=== PATIENT | female | born 1985 | race African-American/Black ===

== ENCOUNTER 2016-10-09 03:13 | Emergency (ER) | payer OTHER ==
[2016-10-09] MEDS ORDERED: IBUPROFEN 600 MG TABLET (FP) PO ONE (03:39)
[2016-10-09] MEDS ORDERED: DIPHTH,PERTUSS(ACELL),TET 0.5 ML DISP.SYRIN IM ONE (03:39)
[2016-10-09] MEDS ORDERED: AMOX TR/POT CLAV 875MG/125MG TABLETS (FP) PO ONE (03:40)
[2016-10-09 04:02] VITALS: BP 142/90; PULSE 89; TEMP 98.7; BMI 36.6
[2016-10-09] MEDS ORDERED: AMOX TR/POT CLAV 875MG/125MG TABLETS (FP) ONE (04:14)
[2016-10-09] MEDS ORDERED: IBUPROFEN 400 MG TABLET (FP) PO ONE (04:15)
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
== END 2016-10-09 04:37 | disposition home or self-care (01) ==
LOC: JER 03:13
PROC: 3E0234Z Introduction of Serum, Toxoid and Vaccine into Muscle, Percutaneous Approach (ICD-10-PCS; principal; 2016-10-09)
DX: S60.476A Other superficial bite of right little finger, initial encounter (principal); Y04.1XXA Assault by human bite, initial encounter; Y93.89 Activity, other specified; Y92.89 Other specified places as the place of occurrence of the external cause; Y07.03 Male partner, perpetrator of maltreatment and neglect
CPT/HCPCS: 73130-TC-RT; 84703; 90471; 90715; 99281-25

== ENCOUNTER 2017-05-10 12:39 | Emergency (ER) | payer SELFPAY ==
[2017-05-10 12:47] VITALS: BP 110/60; PULSE 71; TEMP 97.8; BMI 37.0
[2017-05-10] MEDS ORDERED: KETOROLAC TROMETHAMINE 60 MG/2 ML VIAL IM ONE (13:23)
--- NOTE | 2017-05-10 13:37 | PDOC ---
History of Present Illness - General Chief Complaint: Migraine Headache Stated Complaint: HEADACHES Time Seen by Provider: 05/10/17 12:59 History Source: Patient Exam Limitations: No Limitations - History of Present Illness Initial Comments: 05/10/17 13:26 Patient is a 31-year-old female, history of migraine headaches presents today with headache. Patient reports taking her Fioricet, Motrin, Advil without relief this happens frequently, after 3 days of headache patient goes to the emergency Department for an injection which resolved her pain. Patient reports headache as dull, generalized, no photophobia. Denies any nausea vomiting, no neurosensory deficits. Denies any change in headache from previous episodes. Past Medical History: [Denies]. Allergies: No known allergies Medications: [Fioricet when necessary] Family History: Non-contributory Social History: Denies smoking, alcohol use, or IVDU Review of Systems GENERAL/CONSTITUTIONAL: [No fever or chills. No weakness. No weight change.] HEAD, EYES, EARS, NOSE AND THROAT: [No change in vision. No ear pain or discharge. No sore throat. ] CARDIOVASCULAR: [No chest pain or shortness of breath.] RESPIRATORY: [No cough, wheezing, or hemoptysis.] GASTROINTESTINAL: [No nausea, vomiting, diarrhea or constipation. No rectal bleeding.] GENITOURINARY: [No dysuria, frequency, or change in urination.] MUSCULOSKELETAL: [No joint or muscle swelling or pain. No neck or back pain.] SKIN AND BREASTS: [No rash or easy bruising.] NEUROLOGIC: [Generalized headache PSYCHIATRIC: [No depression or anxiety.] ENDOCRINE: [No increased thirst. No abnormal weight change.] HEMATOLOGIC/LYMPHATIC: [No anemia, easy bleeding, or history of blood clots.] ALLERGIC/IMMUNOLOGIC: [No hives or skin allergy. No latex allergy.] Physical Exam: GENERAL: [The patient is awake, alert, and fully oriented, in no acute distress. ] EYES: [Pupils equal, round and reactive to light, extraocular movements intact, sclera anicteric, conjunctiva clear.] ENT: [Ears normal, nares patent, oropharynx clear without exudates. Moist mucous membranes. No uvula deviation] NECK: [Normal range of motion, supple without lymphadenopathy, JVD, or masses.] LUNGS: [Breath sounds equal, clear to auscultation bilaterally. No wheezes, and no crackles.] HEART: [Regular rate and rhythm, normal S1 and S2 without murmur, rub or gallop. ] ABDOMEN: [Soft, nontender, normoactive bowel sounds. No guarding, no rebound. No masses. No bruising or abrasions] MUSCULOSKELETAL: [Normal range of motion, no edema. No clubbing or cyanosis. No cords, erythema, or tenderness. No CVA Tenderness with fist.] NEUROLOGICAL: [Cranial nerves II through XII grossly intact. Normal speech, normal gait.] SKIN: [Warm, Dry, normal turgor, no rashes or lesions noted.] Past History - Past Medical History Allergies/Adverse Reactions: Allergies Allergy/AdvReac Type Severity Reaction Status Date / Time No Known Allergies Allergy Verified 05/10/17 12:44 Home Medications: Ambulatory Orders Butalb/Acetaminophen/Caffeine [Fioricet 50-300-40 mg Capsule] 1 each PO BID PRN 05/10/17 COPD: No Psychiatric Problems: Yes (anxiety) Other medical history: migraines - Surgical History Abdominal Surgery: Yes (TUBAL SX) Appendectomy: No Cardiac Surgery: No Cholecystectomy: No Gastric Stapling: No GI Surgery: No Lung Surgery: No Neurologic Surgery: No - Reproductive History (#): 4 Para: 1 Polycystic Ovaries: Yes Therapeutic (s) & number: Yes (2) Spontaneous : 1 - Immunization History Immunization Up to Date: Yes - Suicide/Smoking/Psychosocial Hx Smoking Status: Yes Smoking History: Never smoked Have you smoked in the past 12 months: No Number of Cigarettes Smoked Daily: 0 Information on smoking cessation initiated: No Hx Alcohol Use: No Drug/Substance Use Hx: No Substance Use Type: None *Physical Exam - Vital Signs Last Vital Signs Temp Pulse Resp BP Pulse Ox 97.8 F 71 18 110/60 100 05/10/17 12:45 05/10/17 12:45 05/10/17 12:45 05/10/17 12:45 05/10/17 12:45 Medical Decision Making - Medical Decision Making 05/10/17 13:37 A/P: Patient with migraine headache, requesting injection which is toward I will give 60 mg Toradol IM then reevaluate. 05/10/17 22:44 Patient was resolved after Toradol patient requested to leave will DC patient home to follow-up in neurology, [facility] for pain. *DC/Admit/Observation/Transfer Diagnosis at time of Disposition: Migraine Qualifiers: Migraine type: unspecified Status migrainosus presence: without status migrainosus Intractability: not intractable Qualified Code(s): G43.909 - Migraine, unspecified, not intractable, without status migrainosus - Discharge Dispostion Disposition: HOME Condition at time of disposition: Stable Admit: No - Referrals Referrals: Misael Burton MD [Primary Care Provider] - Cain Richmond MD [Staff Physician] - - Patient Instructions Printed Discharge Instructions: Migraine -- Adult Additional Instructions: Increase fluids Medications as prescribed. Follow up with neurology for headaches. - Post Discharge Activity Forms/Work/School Notes: Back to Work
[2017-05-10] MEDS ORDERED: KETOROLAC TROMETHAMINE 60 MG/2 ML VIAL ONE (13:38)
== END 2017-05-10 14:22 | disposition home or self-care (01) ==
LOC: JER 12:39
PROC: 3E0233Z Introduction of Anti-inflammatory into Muscle, Percutaneous Approach (ICD-10-PCS; principal; 2017-05-10)
DX: G43.909 Migraine, unspecified, not intractable, without status migrainosus (principal); F41.9 Anxiety disorder, unspecified
CPT/HCPCS: 99281-25

== ENCOUNTER 2017-07-14 11:15 | Emergency (ER) | payer SELFPAY ==
[2017-07-14 11:20] VITALS: TEMP 98; BMI 34.6
--- NOTE | 2017-07-14 11:42 | PDOC ---
History of Present Illness - General Chief Complaint: Pain Stated Complaint: MISCARRIAGE - History of Present Illness Initial Comments: Patient is a 31 year old female [id number] ,with a significant past medical history of PCOS, who presents to the emergency department complaining of one day of pelvic pain beginning this AM after recent miscarriage. Pt endorsed a recent miscarriage one week ago after noting pelvic pain, cramping and passage of blood clots. Pt with miscarriage 4 years ago as well, with similar symptoms. Pt was seen in clinic with who counseled pt on her miscarriage. Pt with diminishing vaginal bleeding, no further blood clots or POC and no other symptoms until this AM, when she noted burning lower pelvic pain and increased bleeding. Pt states pain is worse with movement and palpation of pelvis. The patient denies chest pain, shortness of breath, headache or dizziness. Denies fever, chills, nausea, vomiting, diarrhea and constipation. Denies dysuria, frequency, urgency and hematuria. Allergies: None Past surgical history: x1 Social History: Denies alcohol, drug use, smoking PMD: Dr. Nicolas Burton 07/14/17 11:41 Past History - Past Medical History Allergies/Adverse Reactions: Allergies Allergy/AdvReac Type Severity Reaction Status Date / Time No Known Allergies Allergy Verified 07/14/17 11:20 Home Medications: Ambulatory Orders Butalb/Acetaminophen/Caffeine [Fioricet 50-300-40 mg Capsule] 1 each PO BID PRN 05/10/17 COPD: No Psychiatric Problems: Yes (anxiety) - Surgical History Abdominal Surgery: Yes (TUBAL SX) Appendectomy: No Cardiac Surgery: No Cholecystectomy: No Gastric Stapling: No GI Surgery: No Lung Surgery: No Neurologic Surgery: No - Reproductive History (#): 4 Para: 1 Polycystic Ovaries: Yes Therapeutic (s) & number: Yes (2) Spontaneous : 1 - Immunization History Immunization Up to Date: Yes - Suicide/Smoking/Psychosocial Hx Smoking Status: Yes Smoking History: Never smoked Have you smoked in the past 12 months: No Number of Cigarettes Smoked Daily: 0 Hx Alcohol Use: No Drug/Substance Use Hx: No Substance Use Type: None Review of Systems - Review of Systems Comments:: GENERAL/CONSTITUTIONAL: No fever or chills. No weakness. HEAD, EYES, EARS, NOSE AND THROAT: No change in vision. No ear pain or discharge. No sore throat. CARDIOVASCULAR: No chest pain or shortness of breath RESPIRATORY: No cough, wheezing, or hemoptysis. GASTROINTESTINAL: No nausea, vomiting, diarrhea or constipation. GENITOURINARY: +pelvic pain, vaginal bleeding; No dysuria, frequency, or change in urination. MUSCULOSKELETAL: No joint or muscle swelling or pain. No neck or back pain. SKIN: No rash NEUROLOGIC: No headache, vertigo, loss of consciousness, or change in strength/ sensation. ENDOCRINE: No increased thirst. No abnormal weight change HEMATOLOGIC/LYMPHATIC: No anemia, easy bleeding, or history of blood clots. ALLERGIC/IMMUNOLOGIC: No hives or skin allergy. 07/14/17 11:41 *Physical Exam - Vital Signs Last Vital Signs Temp Pulse Resp BP Pulse Ox 98 F 70 18 123/72 99 07/14/17 11:17 07/14/17 11:17 07/14/17 11:17 07/14/17 11:17 07/14/17 11:17 - Physical Exam Comments: GENERAL: Young obese woman, Awake, alert, and fully oriented, in no acute distress HEAD: No signs of trauma, normocephalic, atraumatic EYES: PERRLA, EOMI, sclera anicteric, conjunctiva clear ENT: Auricles normal inspection, hearing grossly normal, nares patent, oropharynx clear without exudates. Moist mucosa NECK: Normal ROM, supple, no lymphadenopathy, JVD, or masses LUNGS: No distress, speaks full sentences, clear to auscultation bilaterally HEART: Regular rate and rhythm, normal S1 and S2, no murmurs, rubs or gallops, peripheral pulses normal and equal bilaterally. ABDOMEN: +suprapubic tenderness to palpation; Soft, nontender, normoactive bowel sounds. No guarding, no rebound. No masses EXTREMITIES : Normal inspection, Normal range of motion, no edema. No clubbing or cyanosis. NEUROLOGICAL: Cranial nerves II through XII grossly intact. Normal speech, normal gait, no focal sensorimotor deficits SKIN: Warm, Dry, normal turgor, no rashes or lesions noted 07/14/17 11:41 ED Treatment Course - LABORATORY CBC & Chemistry Diagram: 07/14/17 12:12 07/14/17 12:16 Medical Decision Making - Medical Decision Making Patient is a 31 year old female [id number] ,with a significant past medical history of PCOS, who presents to the emergency department complaining of one day of pelvic pain beginning this AM after recent miscarriage. DDX includes menstrual cramping, ectopic , uterine rupture, PID, septic endometritis , retained POC. Plan: -cbc, cmp, pt/inr, beta quant, type and cross - transvaginal U/S - If imaging normal, will discharge home with outpt f/u with [facility] 07/14/17 14:06 Pt with TVUS notable for L ovarian cyst. All other labs normal. Pt with VSS, pain better controlled. Will discharge home with outpt f/u with PCP and [facility]. 07/14/17 14:28 *DC/Admit/Observation/Transfer Diagnosis at time of Disposition: Menstrual pain - Discharge Dispostion Disposition: HOME Condition at time of disposition: Good Decision to Admit order: No - Referrals Referrals: Alex Burton [Primary Care Provider] - 1 week - Patient Instructions Printed Discharge Instructions: DI for Miscarriage Additional Instructions: During your visit to the [facility] ED, you were evaluated for pelvic pain and vaginal bleeding. You received a transvaginal ultrasound (results discussed with you) and standard lab tests, which were relatively unremarkable. You are being discharged home with outpatient follow-up with your primary care provider and [facility] doctor. Please take tylenol 650mg every four hours if you experience pain until your symptoms resolve. If you experience any of the following symptoms, please return to the ED: - Persistent fevers/chills >3 days - Worsening vaginal bleeding, passage of clots, persistent pelvic or abdominal pain - Changes in vision, numbness/weakness in any extremities, or persistent dizziness/loss of consciousness - Any new or concerning symptoms - Post Discharge Activity
[2017-07-14 12:27] LABS: BASO % 0.8 % (0-2.0); EOS % 1.1 % (0-4.5); HEMATOCRIT 37.9 % (32.4-45.2); HEMOGLOBIN 12.5 GM/dL (10.7-15.3); LYMPH % 32.3 % (8-40); MCHC 33.1 g/dl (32.0-36.0); MEAN CELL VOLUME 87.8 fl (80-96); MEAN PLT VOLUME 8.8 fl (7.5-11.1); MONO % 6.2 % (3.8-10.2); NEUT % 59.6 % (42.8-82.8); PLATELET COUNT 216 K/MM3 (134-434); RBC 4.32 M/mm3 (3.60-5.2); RDW 12.8 % (11.6-15.6); WHITE BLOOD COUNT 8.1 K/mm3 (4.0-10.0)
[2017-07-14 12:39] LABS: INR 1.19 (0.82-1.09); PROTHROMBIN TIME (PATIENT) 13.5 SEC (9.7-13.0)
[2017-07-14 12:54] LABS: ALBUMIN 3.5 g/dl (3.4-5.0); ANION GAP 8 (8-16); BILIRUBIN,TOTAL 0.4 mg/dL (0.2-1.0); BLOOD UREA NITROGEN 7 mg/dL (7-18); CALCIUM 8.7 mg/dL (8.5-10.1); CHLORIDE 106 mmol/L (98-107); CO2 25 mmol/L (21-32); CREATININE 0.8 mg/dL (0.55-1.02); GLUCOSE,RANDOM 83 mg/dL (74-106); POTASSIUM 3.8 mmol/L (3.5-5.1); SGOT/AST 17 U/L (15-37); SGPT/ALT 22 U/L (12-78); SODIUM 139 mmol/L (136-145); TOT PROT 7.5 g/dl (6.4-8.2)
[2017-07-14 12:57] LABS: ALK PHOS 65 U/L (45-117)
--- NOTE | 2017-07-14 13:10 | PDOC ---
Attending Attestation - Resident Resident Name: [email or web address] [email or web address] - ED Attending Attestation I have performed the following: I have examined & evaluated the patient, The case was reviewed & discussed with the resident, I agree w/resident's findings & plan, Exceptions are as noted - HPI HPI: 07/14/17 13:05 31 yo F currently s/p miscarriage from 8 weeks diagnosed with miscarriage 1 week ago, now with increased amount of bleeding todya. was seen one week ago by dr. nowak, her ob/ [facility]. no prior ultrasound. no abd pain, only cramping. no h/o ectopic. - Physicial Exam PE: 07/14/17 13:07 awake alert lungs clear bilaterally heart rrr no mrg. abd soft nt nd. pelvic with scant blood in vaginal vault, cervix soft, open few mm. - Medical Decision Making 07/14/17 13:09 31 yo F s/p miscarriage, here with bleeding. differential retained products, ectopic, , incomplete ab. plan tvus, labs bhcg. will call pt ob/ concrete [facility].
[2017-07-14 14:35] VITALS: BP 124/68; PULSE 68
== END 2017-07-14 14:37 | disposition home or self-care (01) ==
LOC: JER 11:15
DX: N94.4 Primary dysmenorrhea (principal); N83.202 Unspecified ovarian cyst, left side
CPT/HCPCS: 36415; 76830-TC; 80053; 84702; 85025; 85610; 86850; 86900; 86901; 99283-25

== ENCOUNTER 2017-07-26 12:37 | Emergency (ER) | payer OTHER ==
[2017-07-26 12:52] VITALS: BP 112/65; PULSE 64; TEMP 97.8; BMI 36.3
--- NOTE | 2017-07-26 13:53 | PDOC ---
History of Present Illness - General Chief Complaint: Bite Stated Complaint: INSECT BITE Time Seen by Provider: 07/26/17 13:05 History Source: Patient - History of Present Illness Timing/Duration: reports: this afternoon Severity: Yes: mild Location: reports: extremities Past History - Past Medical History Allergies/Adverse Reactions: Allergies Allergy/AdvReac Type Severity Reaction Status Date / Time No Known Allergies Allergy Verified 07/26/17 12:50 Home Medications: Ambulatory Orders Butalb/Acetaminophen/Caffeine [Fioricet 50-300-40 mg Capsule] 1 each PO BID PRN 05/10/17 COPD: No Psychiatric Problems: Yes (anxiety) - Surgical History Abdominal Surgery: Yes (TUBAL SX) Appendectomy: No Cardiac Surgery: No Cholecystectomy: No Gastric Stapling: No GI Surgery: No Lung Surgery: No Neurologic Surgery: No - Reproductive History (#): 4 Para: 1 Polycystic Ovaries: Yes Therapeutic (s) & number: Yes (2) Spontaneous : 1 - Immunization History Immunization Up to Date: Yes - Suicide/Smoking/Psychosocial Hx Smoking Status: Yes Smoking History: Never smoked Have you smoked in the past 12 months: No Number of Cigarettes Smoked Daily: 0 Information on smoking cessation initiated: No Hx Alcohol Use: No Drug/Substance Use Hx: No Substance Use Type: None Review of Systems - Review of Systems Constitutional: No: Fever Integumentary: Yes: Erythema *Physical Exam - Vital Signs Last Vital Signs Temp Pulse Resp BP Pulse Ox 97.8 F 64 16 112/65 100 07/26/17 12:50 07/26/17 12:50 07/26/17 12:50 07/26/17 12:50 07/26/17 12:50 - Physical Exam General Appearance: Yes: Appropriately Dressed. No: Apparent Distress HEENT: positive: Normal Voice Neck: positive: Supple Respiratory/Chest: negative: Respiratory Distress Extremity: positive: Other (minimal erythema w/ swelling over lateral malleolus of R ankle, no sig ttp ) Medical Decision Making - Medical Decision Making 07/26/17 13:47 32-year-old female, no significant history here with suspected insect bite. States while at work today, felt something crawl on her right ankle and when she looked down, she saw an insect, not certain if it was a spider and now complaining of itching, redness and swelling to site. Patient well-appearing and stable with minimal erythema and swelling over lateral malleolus of right ankle, most likely allergic reaction to insect bite, unlikely infection. DC with oral [id number] antihistamine and cold compress. Reasons to return to ER discussed with patient *DC/Admit/Observation/Transfer Diagnosis at time of Disposition: Insect bite Qualifiers: Encounter type: initial encounter Qualified Code(s): W57.XXXA - Bitten or stung by nonvenomous insect and other nonvenomous arthropods, initial encounter - Discharge Dispostion Disposition: HOME Condition at time of disposition: Good - Referrals Referrals: Misael Burton MD [Primary Care Provider] - - Patient Instructions Printed Discharge Instructions: DI for Insect Bites and Stings Additional Instructions: Take Claritin or Zyrtec as needed for itching and apply ice to area. If symptoms worsen, return to ER immediately - Post Discharge Activity Forms/Work/School Notes: Back to Work
== END 2017-07-26 13:48 | disposition home or self-care (01) ==
LOC: JERFT 12:37
DX: S90.561A Insect bite (nonvenomous), right ankle, initial encounter (principal); W57.XXXA Bitten or stung by nonvenomous insect and other nonvenomous arthropods, initial encounter; Y93.89 Activity, other specified; Y92.238 Other place in hospital as the place of occurrence of the external cause; Y99.0 Civilian activity done for income or pay
CPT/HCPCS: 99281-25

== ENCOUNTER 2018-01-09 08:41 | Emergency (ER) | payer SELFPAY ==
[2018-01-09 09:00] VITALS: BP 130/79; PULSE 79; TEMP 98.5; BMI 36.1
[2018-01-09] MEDS ORDERED: ACETAMINOPHEN 650 MG/20.3 ML ORAL SOLUTION (CUPS) PO ONE (09:36)
[2018-01-09] MEDS ORDERED: ACETAMINOPHEN 650 MG/20.3 ML ORAL SOLUTION (CUPS) ONE (09:42)
--- NOTE | 2018-01-09 09:44 | PDOC ---
History of Present Illness - General Chief Complaint: Sore Throat Stated Complaint: SORE THROAT Time Seen by Provider: 01/09/18 09:03 History Source: Patient Exam Limitations: No Limitations - History of Present Illness Initial Comments: 01/09/18 09:38 32 yr female with c/o sore throat for 2 days with left ear pain. no fever, pos diff swallowing. Severity: mild Past History - Past Medical History Allergies/Adverse Reactions: Allergies Allergy/AdvReac Type Severity Reaction Status Date / Time No Known Allergies Allergy Verified 09/03/17 11:05 Home Medications: Ambulatory Orders Amoxicillin - [Amoxicillin 500mg Capsule -] 500 mg PO BID #20 capsule 01/09/18 COPD: No Psychiatric Problems: Yes (anxiety) - Surgical History Abdominal Surgery: Yes (TUBAL SX) Appendectomy: No Cardiac Surgery: No Cholecystectomy: No Gastric Stapling: No GI Surgery: No Lung Surgery: No Neurologic Surgery: No - Reproductive History (#): 4 Para: 1 Polycystic Ovaries: Yes Therapeutic (s) & number: Yes (2) Spontaneous : 1 - Immunization History Immunization Up to Date: Yes - Suicide/Smoking/Psychosocial Hx Smoking Status: Yes Smoking History: Never smoked Have you smoked in the past 12 months: No Number of Cigarettes Smoked Daily: 0 Information on smoking cessation initiated: No Hx Alcohol Use: No Drug/Substance Use Hx: No Substance Use Type: None Review of Systems - Review of Systems Able to Perform ROS?: Yes Is the patient limited Ghanaian proficient: No Constitutional: No: Symptoms Reported HEENTM: Yes: Symptoms Reported *Physical Exam - Vital Signs Last Vital Signs Temp Pulse Resp BP Pulse Ox 98.5 F 79 16 130/79 100 01/09/18 08:57 01/09/18 08:57 01/09/18 08:57 01/09/18 08:57 01/09/18 08:57 - Physical Exam General Appearance: Yes: Nourished, Appropriately Dressed HEENT: positive: EOMI, JOVANY, Pharyngeal Erythema, Tonsillar Exudate, Tonsillar Erythema, TM Erythema Neck: positive: Supple, Lymphadenopathy (R), Lymphadenopathy (L) Respiratory/Chest: positive: Normal Breath Sounds Cardiovascular: positive: Regular Rhythm, Regular Rate Moderate Sedation - Procedure Monitoring Vital Signs: Procedure Monitoring Vital Signs Temperature 98.5 F 01/09/18 08:57 Pulse Rate 79 01/09/18 08:57 Respiratory Rate 16 01/09/18 08:57 Blood Pressure 130/79 01/09/18 08:57 O2 Sat by Pulse Oximetry (%) 100 01/09/18 08:57 *DC/Admit/Observation/Transfer Diagnosis at time of Disposition: Pharyngitis Qualifiers: Pharyngitis/tonsillitis etiology: unspecified etiology Qualified Code(s): J02.9 - Acute pharyngitis, unspecified - Discharge Dispostion Disposition: HOME - Prescriptions Prescriptions: Amoxicillin - [Amoxicillin 500mg Capsule -] 500 mg PO BID #20 capsule - Referrals Referrals: Alex Burton [Primary Care Provider] - - Patient Instructions Printed Discharge Instructions: DI for Pharyngitis/Tonsillopharyngitis -- Adult Additional Instructions: garlge with warm salt water 4-5 times a day take the Amox as directed for 10 days take ibuprofen every 6-8hrs for pain (over the counter) tea with honey and lemon pleanty of fluids, ice pops, jello soft foods follow with your doctor in 1-3 days if not improving - Post Discharge Activity
== END 2018-01-09 10:16 | disposition home or self-care (01) ==
LOC: JERFT 08:41
DX: J02.9 Acute pharyngitis, unspecified (principal)
CPT/HCPCS: 87070; 87880; 99281-25

== ENCOUNTER 2018-01-30 16:06 | Emergency (ER) | payer SELFPAY ==
[2018-01-30 16:18] VITALS: BMI 37.0
--- NOTE | 2018-01-30 17:15 | PDOC ---
History of Present Illness - General Chief Complaint: Pain Stated Complaint: PELVIC PAIN Time Seen by Provider: 01/30/18 17:09 History Source: Patient Exam Limitations: No Limitations - History of Present Illness Initial Comments: 01/30/18 17:14 32f with pmh of PCOS presenting with LLQ pelvic pain radiating to left flank for the past day. She's had pain there for a month, usually is mild pain and dull, but the exacerbation today is excruciating. tried taking motrin but with little relief. She's had that kind of pain before and it turned out to be a ruptured cyst. Denies fever, nausea, vomiting, dysuria, hematuria, constipation or diarrhea. She states it's not impossible she might be . On currently on the 4th day of her period. Past History - Past Medical History Allergies/Adverse Reactions: Allergies Allergy/AdvReac Type Severity Reaction Status Date / Time No Known Allergies Allergy Verified 01/30/18 16:18 Home Medications: Ambulatory Orders Oxycodone HCl/Acetaminophen [Percocet 5-325 mg Tablet] 1 tab PO Q6H PRN #12 tablet MDD 4 tabs 01/30/18 COPD: No CHF: No Psychiatric Problems: Yes (anxiety) - Surgical History Abdominal Surgery: Yes (TUBAL SX) Appendectomy: No Cardiac Surgery: No Cholecystectomy: No Gastric Stapling: No GI Surgery: No Lung Surgery: No Neurologic Surgery: No - Reproductive History (#): 4 Para: 1 Polycystic Ovaries: Yes Therapeutic (s) & number: Yes (2) Spontaneous : 1 - Immunization History Immunization Up to Date: Yes - Suicide/Smoking/Psychosocial Hx Smoking Status: Yes Smoking History: Never smoked Have you smoked in the past 12 months: No Number of Cigarettes Smoked Daily: 0 Information on smoking cessation initiated: No Hx Alcohol Use: No Drug/Substance Use Hx: No Substance Use Type: None Review of Systems - Review of Systems Able to Perform ROS?: Yes Is the patient limited Monegasque proficient: No Constitutional: No: Symptoms Reported HEENTM: No: Symptoms Reported Respiratory: No: Symptoms reported Cardiac (ROS): No: Symptoms Reported ABD/GI: Yes: See HPI. No: Abdominal Distended, Abd. Pain w/ defecation, Blood Streaked Bowels, Constipated, Diarrhea, Difficulty Swallowing, Nausea, Poor Appetite : No: Burning, Dysuria, Discharge, Frequency Musculoskeletal: No: Symptoms Reported Integumentary: No: Symptoms Reported *Physical Exam - Vital Signs Last Vital Signs Temp Pulse Resp BP Pulse Ox 97.9 F 81 16 146/61 100 01/30/18 16:06 01/30/18 16:06 01/30/18 16:06 01/30/18 16:06 01/30/18 16:06 - Physical Exam General Appearance: Yes: Nourished, Appropriately Dressed, Obese HEENT: positive: EOMI, JOVANY, Normal ENT Inspection Respiratory/Chest: positive: Lungs Clear, Normal Breath Sounds. negative: Chest Tender, Respiratory Distress Cardiovascular: positive: Regular Rhythm, Regular Rate, S1, S2 Female Pelvic Exam: positive: normal external exam, cervical os closed, normal adnexa, normal size ovaries. negative: CMT, discharge, adnexal tenderness, vaginal bleeding Gastrointestinal/Abdominal: positive: Normal Bowel Sounds, Tender (LLQ), Soft, Distended Musculoskeletal: positive: Normal Inspection. negative: CVA Tenderness Extremity: positive: Normal Capillary Refill, Normal Inspection, Normal Range of Motion Integumentary: positive: Normal Color, Dry, Warm Neurologic: positive: Fully Oriented, Alert, Normal Mood/Affect Moderate Sedation - Procedure Monitoring Vital Signs: Procedure Monitoring Vital Signs Temperature 97.9 F 01/30/18 16:06 Pulse Rate 81 01/30/18 16:06 Respiratory Rate 16 01/30/18 16:06 Blood Pressure 146/61 01/30/18 16:06 O2 Sat by Pulse Oximetry (%) 100 01/30/18 16:06 ED Treatment Course - LABORATORY CBC & Chemistry Diagram: 01/30/18 17:31 01/30/18 17:31 Medical Decision Making - Medical Decision Making 01/30/18 17:14 ectopic preg vs nephrolithiasis vs ovarian torsion vs PID 01/30/18 17:52 Because of the distribution of the pain and the subacute nature, i am suspicious of nephrolithiasis however will check for with serum betahcg, and ruptured cyst/torsion with u/s first. 01/30/18 19:20 No blood in the urine 01/30/18 22:54 Evidence of 2.3 nabothian cyst on the left ovary. Will d/c with obgynb follow up. *DC/Admit/Observation/Transfer Diagnosis at time of Disposition: Ovarian cyst - Discharge Dispostion Disposition: HOME Condition at time of disposition: Guarded Decision to Admit order: No - Prescriptions Prescriptions: Oxycodone HCl/Acetaminophen [Percocet 5-325 mg Tablet] 1 tab PO Q6H PRN #12 tablet MDD 4 tabs PRN Reason: Pain - Referrals Referrals: Misael Burton MD [Primary Care Provider] - Krupa Byrd DO [Staff Physician] - - Patient Instructions Printed Discharge Instructions: Ovarian Cyst, DI for Abdominal Pain-Adult Additional Instructions: Come back to the emergency department for any new, worsening or concerning symptoms. Follow up with your OBGYN or Dr. Byrd for further evaluation and plan. - Post Discharge Activity
[2018-01-30 17:46] LABS: BASO % 0.8 % (0-2.0); EOS % 1.4 % (0-4.5); HEMOGLOBIN 12.7 GM/dL (10.7-15.3); LYMPH % 27.9 % (8-40); MCH 29.8 pg (25.7-33.7); MCHC 34.3 g/dl (32.0-36.0); MEAN CELL VOLUME 86.8 fl (80-96); MEAN PLT VOLUME 8.9 fl (7.5-11.1); MONO % 6.5 % (3.8-10.2); NEUT % 63.4 % (42.8-82.8); PLATELET COUNT 217 K/MM3 (134-434); RBC 4.27 M/mm3 (3.60-5.2); WHITE BLOOD COUNT 8.5 K/mm3 (4.0-10.0)
--- NOTE | 2018-01-30 17:54 | PDOC ---
Attending Attestation - HPI HPI: 01/30/18 19:07 The patient is a 32 year old female (), with a significant past medical history of PCOS, who presents to the emergency department with left lower quadrant tenderness for the past month but acutely worsening yesterday, prompting her to come to the emergency department for evaluation. The patient describes the pain as sharp, crampy and constant. She states that the pain is better when standing and is worse when sitting. She reports taking Motrin which has not significantly helped to alleviate her symptoms. The patient does report that she has had a ruptured cyst in the past and does note that this pain feels similar. The patient denies fever, chills, nausea, vomiting or diarrhea. Allergies: None reported. Past Surgical History: . Social History: Non-smoker. Denies alcohol or drug use. - Physicial Exam PE: 01/30/18 19:02 GENERAL: The patient is in no acute distress. HEAD: Normal with no signs of trauma. EYES: PERRLA, EOMI, sclera anicteric, conjunctiva clear. ENT: Ears normal, nares patent, oropharynx clear without exudates. Moist mucous membranes. NECK: Normal range of motion, supple without lymphadenopathy, JVD, or masses. LUNGS: Breath sounds equal, clear to auscultation bilaterally. No wheezes, no crackles. HEART: Regular rate and rhythm, normal S1 and S2 without murmur, rub or gallop. ABDOMEN: Left lower quadrant tenderness. Soft, normoactive bowel sounds. No guarding, no rebound. No masses palpable. EXTREMITIES: Normal range of motion, no edema. No clubbing or cyanosis. No erythema, or tenderness. NEUROLOGICAL: Cranial nerves II through XII grossly intact. Normal speech. No focal neurological deficits. MUSCULOSKELETAL: Back nontender to palpation. No CVA tenderness. SKIN: Warm, dry, normal turgor, no rashes or lesions noted. Documentation prepared by Meron Greenfield, acting as medical health researcher for Beth Mattson MD. <Meron Milligan - Last Filed: 01/30/18 19:08> - Resident Resident Name: Dayton Ham - ED Attending Attestation I have performed the following: I have examined & evaluated the patient, The case was reviewed & discussed with the resident, I agree w/resident's findings & plan, Exceptions are as noted - Medical Decision Making 01/30/18 17:55 Laboratory Tests 01/30/18 17:31 WBC 8.5 Hgb 12.7 Hct 37.0 Plt Count 217 01/30/18 18:15 Laboratory Tests 01/30/18 01/30/18 01/30/18 17:31 17:31 17:31 WBC 8.5 Hgb 12.7 Hct 37.0 Plt Count 217 BUN 11 Creatinine 0.7 Serum , Qual Negative Urine Blood Urine Nitrite Ur Leukocyte Esterase 01/30/18 17:40 WBC Hgb Hct Plt Count BUN Creatinine Serum , Qual Urine Blood Negative Urine Nitrite Negative Ur Leukocyte Esterase Negative Pt currently in US Pt signed out pending US results Anticipate discharge <Beth Mattson - Last Filed: 01/31/18 11:52>
[2018-01-30 18:03] LABS: PH,URINE 5.5 (5.0-8.0); URINE APPEARANCE Clear; URINE BILIRUBIN Negative (<2.0 mg/dL); URINE COLOR Yellow; URINE GLUCOSE (UA) Negative (NEGATIVE); URINE KETONE Trace (NEGATIVE); URINE LEUK ESTERASE Negative (NEGATIVE); URINE NITRITE Negative (NEGATIVE); URINE PROTEIN Trace (NEGATIVE); URINE UROBILINOGEN 0.2 mg/dL (0.2-1.0)
[2018-01-30 18:13] LABS: ALBUMIN 3.6 g/dl (3.4-5.0); ALK PHOS 89 U/L (45-117); ANION GAP 9 MMOL/L (8-16); BILIRUBIN,TOTAL 0.2 mg/dL (0.2-1); BLOOD UREA NITROGEN 11 mg/dL (7-18); CHLORIDE 106 mmol/L (98-107); CO2 25 mmol/L (21-32); CREATININE 0.7 mg/dL (0.55-1.3); GLUCOSE,RANDOM 85 mg/dL (74-106); POTASSIUM 3.6 mmol/L (3.5-5.1); SGOT/AST 24 U/L (15-37); SGPT/ALT 34 U/L (13-61); SODIUM 139 mmol/L (136-145); TOT PROT 7.7 g/dl (6.4-8.2)
[2018-01-30] MEDS ORDERED: ACETAMINOPHEN 325 MG TABLET (FP) PO ONE (20:31)
[2018-01-30] MEDS ORDERED: ACETAMINOPHEN 325 MG TABLET (FP) ONE (20:37)
[2018-01-30] MEDS ORDERED: morphine CARPU-JECT 4 MG/1 ML DISP.SYRIN IVPUSH ONE (22:21)
[2018-01-30 23:02] VITALS: BP 118/77; PULSE 72; TEMP 98.3
== END 2018-01-30 23:21 | disposition home or self-care (01) ==
LOC: JER 16:06
DX: N83.292 Other ovarian cyst, left side (principal)
CPT/HCPCS: 36415; 74176; 76830-TC; 80053; 81003; 84703; 85025; 87086; 99283-25

== ENCOUNTER 2018-02-26 17:52 | Emergency (ER) | payer SELFPAY ==
[2018-02-26] MEDS ORDERED: ALBUTEROL SO4 2.5/IPRATROPIUM 0.5 INH SOL 3 ML VIAL.NEB. NEB ONE ×3 (17:59→18:49)
--- NOTE | 2018-02-26 17:59 | PDOC ---
Rapid Medical Evaluation Medical Evaluation: Allergies Allergy/AdvReac Type Severity Reaction Status Date / Time No Known Allergies Allergy Verified 01/30/18 16:18 I have performed a brief in-person evaluation of this patient. The patient presents with a chief complaint of: Chest tightness and sob x 4 days ; some dry cough as well; denies hx of asthma Pertinent physical exam findings: In NAD, lungs clear I have ordered the following: trial of duoneb The patient will proceed to the ED for further evaluation. 02/26/18 17:55 Discharge Disposition - Referrals Referrals: Misael Burton MD [Primary Care Provider] - - Patient Instructions - Post Discharge Activity
[2018-02-26 18:10] VITALS: BP 116/70; PULSE 87; TEMP 98; BMI 37.0
[2018-02-26] MEDS ORDERED: DEXAMETHASONE LIQUID 0.5 MG/5 ML 240 ML BULK BOTTLE PO ONE (18:47)
[2018-02-26] MEDS ORDERED: DEXAMETHASONE SOD PHOSPHATE 10 MG/1 ML VIAL ONE (18:49)
[2018-02-26] MEDS: ALBUTEROL SO4 2.5/IPRATROPIUM 0.5 INH SOL 3 ML VIAL.NEB. NEB SCH ×3 (18:52→19:33)
--- NOTE | 2018-02-26 19:33 | PDOC ---
History of Present Illness - General Chief Complaint: Respiratory Stated Complaint: CHEST PAIN Time Seen by Provider: 02/26/18 17:54 - History of Present Illness Initial Comments: 02/26/18 19:31 32-year-old female without comorbidities resents for evaluation of productive cough 4 days without fever Past History - Past Medical History Allergies/Adverse Reactions: Allergies Allergy/AdvReac Type Severity Reaction Status Date / Time No Known Allergies Allergy Verified 01/30/18 16:18 Home Medications: Ambulatory Orders Albuterol Sulfate Inhaler - [Ventolin HFA Inhaler -] 1 - 2 inh PO Q4H #1 inhaler 02/26/18 Azithromycin [Zithromax -] 250 mg PO UTDICT #6 tab 02/26/18 Asthma: Yes COPD: No CHF: No Psychiatric Problems: Yes (anxiety) - Surgical History Abdominal Surgery: Yes (TUBAL SX) Appendectomy: No Cardiac Surgery: No Cholecystectomy: No Gastric Stapling: No GI Surgery: No Lung Surgery: No Neurologic Surgery: No - Reproductive History (#): 4 Para: 1 Polycystic Ovaries: Yes Therapeutic (s) & number: Yes (2) Spontaneous : 1 - Immunization History Immunization Up to Date: Yes - Suicide/Smoking/Psychosocial Hx Smoking Status: Yes Smoking History: Never smoked Have you smoked in the past 12 months: No Number of Cigarettes Smoked Daily: 0 Information on smoking cessation initiated: No Hx Alcohol Use: No Drug/Substance Use Hx: No Substance Use Type: None Review of Systems - Review of Systems Constitutional: No: Fever Respiratory: Yes: Cough *Physical Exam - Vital Signs Last Vital Signs Temp Pulse Resp BP Pulse Ox 98.0 F 87 18 116/70 100 02/26/18 17:56 02/26/18 17:56 02/26/18 17:56 02/26/18 17:56 02/26/18 17:56 - Physical Exam Comments: 02/26/18 19:31 HEAD: NC/AT EYES: Conjuntiva clear Ears: Canals and TM's normal NOSE: No d/c THROAT: Moist mucous membrances, oral pharanx clear, uvula midline NECK: Supple without adenopathy CARDIAC: S1 S2 LUNGS: Decreased breath sounds bilaterally without wheezing or rhonchi ABDOMEN: Soft NT ND MS: Full ROM in all joints without edema NEUROLOGIC: No gross sensory or motor deficits, NVID SKIN: Normal color and temperature no lesions or rashes Moderate Sedation - Procedure Monitoring Vital Signs: Procedure Monitoring Vital Signs Temperature 98.0 F 02/26/18 17:56 Pulse Rate 87 02/26/18 17:56 Respiratory Rate 18 02/26/18 17:56 Blood Pressure 116/70 02/26/18 17:56 O2 Sat by Pulse Oximetry (%) 100 02/26/18 17:56 ED Treatment Course - Medications Given in the ED: ED Medications Discontinued Medications Generic Name Dose Route Start Last Admin Trade Name Matthew PRN Reason Stop Dose Admin Albuterol/Ipratropium 1 amp 02/26/18 17:59 02/26/18 18:37 Duoneb - NEB 02/26/18 18:00 1 amp ONCE ONE Administration Dexamethasone 10 mg 02/26/18 18:47 02/26/18 18:51 Decadron Liquid - PO 02/26/18 18:48 10 mg ONCE ONE Administration Medical Decision Making - Medical Decision Making 02/26/18 19:32 Full equal breath sounds after 3 DuoNeb's. I will treat bronchitis with Zithromax and an inhaler *DC/Admit/Observation/Transfer Diagnosis at time of Disposition: Bronchitis - Discharge Dispostion Disposition: HOME Condition at time of disposition: Stable Decision to Admit order: No - Referrals Referrals: Misael Burton MD [Primary Care Provider] - - Patient Instructions Printed Discharge Instructions: DI for Acute Bronchitis Additional Instructions: Take the antibiotics as directed. Use the inhaler as directed. Return to the emergency room should symptoms worsen or follow up with her primary care physician in one to 2 days for further evaluation and treatment options. - Post Discharge Activity
--- NOTE | 2018-02-27 11:57 | EKG ---
Test Reason : Blood Pressure : / mmHG Vent. Rate : 072 BPM Atrial Rate : 072 BPM P-R Int : 144 ms QRS Dur : 082 ms QT Int : 406 ms P-R-T Axes : 032 039 029 degrees QTc Int : 444 ms NORMAL SINUS RHYTHM NORMAL ECG WHEN COMPARED WITH ECG OF 10-JUL-2015 01:48, NO SIGNIFICANT CHANGE WAS FOUND Confirmed by GANESH WELLS MD ([id number]) on 02/27/2018 11:57:13 AM Referred By: Confirmed By:GANESH WELLS MD
== END 2018-02-26 19:37 | disposition home or self-care (01) ==
LOC: JERFT 17:52
PROC: 3E0F7GC Introduction of Other Therapeutic Substance into Respiratory Tract, Via Natural or Artificial Opening (ICD-10-PCS; principal; 2018-02-26)
DX: J40 Bronchitis, not specified as acute or chronic (principal); F41.9 Anxiety disorder, unspecified; J45.909 Unspecified asthma, uncomplicated
CPT/HCPCS: 93005; 93010; 99281-25

== ENCOUNTER 2018-04-16 06:50 | Emergency (ER) | payer OTHER ==
[2018-04-16 07:11] VITALS: BP 133/78; PULSE 90; TEMP 97.9; BMI 29.0
--- NOTE | 2018-04-16 08:19 | PDOC ---
History of Present Illness - General Chief Complaint: Injury Stated Complaint: INJURY/FINGER Time Seen by Provider: 04/16/18 07:29 History Source: Patient Exam Limitations: No Limitations - History of Present Illness Initial Comments: 04/16/18 08:16 caught left 5th digit fingernail and avulsed nail tip Occurred: reports: this morning Severity: reports: mild, moderate Associated Symptoms (Fall): denies symptoms Past History - Travel Traveled outside of the country in the last 30 days: No Close contact w/someone who was outside of country & ill: No - Past Medical History Allergies/Adverse Reactions: Allergies Allergy/AdvReac Type Severity Reaction Status Date / Time No Known Allergies Allergy Verified 04/16/18 08:18 Home Medications: Ambulatory Orders NK [No Known Home Medication] 04/16/18 Asthma: Yes COPD: No CHF: No Psychiatric Problems: Yes (anxiety) - Surgical History Abdominal Surgery: Yes (TUBAL SX) Appendectomy: No Cardiac Surgery: No Cholecystectomy: No Gastric Stapling: No GI Surgery: No Lung Surgery: No Neurologic Surgery: No - Reproductive History (#): 4 Para: 1 Polycystic Ovaries: Yes Therapeutic (s) & number: Yes (2) Spontaneous : 1 - Immunization History Immunization Up to Date: Yes - Suicide/Smoking/Psychosocial Hx Smoking Status: Yes Smoking History: Never smoked Have you smoked in the past 12 months: No Number of Cigarettes Smoked Daily: 0 Hx Alcohol Use: No Drug/Substance Use Hx: No Substance Use Type: None Review of Systems - Review of Systems Able to Perform ROS?: Yes Is the patient limited Welsh proficient: Yes Constitutional: Yes: See HPI. No: Symptoms Reported HEENTM: No: Symptoms Reported Musculoskeletal: Yes: Symptoms Reported, See HPI Integumentary: Yes: Symptoms Reported, See HPI, Bruising All Other Systems: Reviewed and Negative *Physical Exam - Vital Signs Last Vital Signs Temp Pulse Resp BP Pulse Ox 97.9 F 90 18 133/78 100 04/16/18 07:10 04/16/18 07:10 04/16/18 07:10 04/16/18 07:10 04/16/18 07:10 - Physical Exam General Appearance: Yes: Appropriately Dressed, Apparent Distress, Mild Distress HEENT: positive: JOVANY, Normal ENT Inspection, TMs Normal, Pharynx Normal Neck: negative: Tender Musculoskeletal: positive: Normal Inspection, Other (fingernail tip has avulsed from epinycheum to ulnar aspect of nail. FROM to fionger and no phalynx pain) Integumentary: positive: Normal Color Neurologic: positive: technology support analyst II-XII NML intact, Fully Oriented, Alert, Normal Mood/ Affect, Normal Response, Motor Strength 5/5 Moderate Sedation - Procedure Monitoring Vital Signs: Procedure Monitoring Vital Signs Temperature 97.9 F 04/16/18 07:10 Pulse Rate 90 04/16/18 07:10 Respiratory Rate 18 04/16/18 07:10 Blood Pressure 133/78 04/16/18 07:10 O2 Sat by Pulse Oximetry (%) 100 04/16/18 07:10 Procedures - Laceration/Wound Repair Left Finger Wound Length: to 2.5 cm Wound's Depth, Shape: nail-avulsed (digital block applied, and nail was re- inserted into epinycheum. Steristrips applied and cushioned/ anchored and splint applied. ) Betadine Prep: Yes Wound Repaired With: Steri-strips Progress Note - Progress Note Progress Note: Fingernail avulsion, re- attached *DC/Admit/Observation/Transfer Diagnosis at time of Disposition: Fingernail avulsion Qualifiers: Encounter type: initial encounter Qualified Code(s): S61.309A - Unspecified open wound of unspecified finger with damage to nail, initial encounter - Discharge Dispostion Disposition: HOME Condition at time of disposition: Stable Decision to Admit order: No - Referrals Referrals: Misael Burton MD [Primary Care Provider] - - Patient Instructions Additional Instructions: Rest, elevate, avoid strenuous activity or heavy lifting until sutures are removed Leave dressing on for the next 24 hours, Then may remove dressing gently and wash area with soap and water. Reapply bacitracin ointment and dressing daily for the next 5 days May use Tylenol or Motrin for pain relief May take one half to one tablet of Percocet every 6 hours as needed for severe pain Tetanus/diphtheria/pertussis booster was updated today - Post Discharge Activity Forms/Work/School Notes: Back to Work
[2018-04-16] MEDS ORDERED: DIPHTH,PERTUSS(ACELL),TET 0.5 ML DISP.SYRIN IM ONE ×2 (08:34→08:36)
== END 2018-04-16 08:46 | disposition home or self-care (01) ==
LOC: JER 06:50
PROC: 3E0234Z Introduction of Serum, Toxoid and Vaccine into Muscle, Percutaneous Approach (ICD-10-PCS; principal; 2018-04-16)
DX: S61.309A Unspecified open wound of unspecified finger with damage to nail, initial encounter (principal)
CPT/HCPCS: 90471; 90715; 99281-25

== ENCOUNTER 2018-04-20 21:50 | Emergency (ER) | payer OTHER ==
[2018-04-20 21:54] VITALS: BP 108/69; PULSE 71; TEMP 97.8; BMI 35.2
--- NOTE | 2018-04-20 22:34 | PDOC ---
History of Present Illness - General Chief Complaint: Pain Stated Complaint: FINGER PAIN Time Seen by Provider: 04/20/18 22:04 History Source: Patient Exam Limitations: Clinical Condition - History of Present Illness Initial Comments: 04/20/18 22:35 Patient with no past medical history present with complaint of persistent pain to fingernail of left little finger status post injury a week ago caused by accidentally hitting the finger on a desk causing fingernail injury. Patient was seen 4 days ago for symptoms and sent home on pain meds and rapid Steri- Strips to the finger which she reported came off and she came back to be rewrapped. Patient have long finger nail with artificial fingernail and refused to have artificial fingernail removal. Denies any other symptoms Timing/Duration: 1 week Past History - Past Medical History Allergies/Adverse Reactions: Allergies Allergy/AdvReac Type Severity Reaction Status Date / Time No Known Allergies Allergy Verified 04/20/18 21:53 Home Medications: Ambulatory Orders Cephalexin [Keflex] 500 mg PO 10 #5 capsule 04/20/18 Ibuprofen 800 mg PO Q8H PRN #20 tablet 04/20/18 Asthma: Yes COPD: No CHF: No Psychiatric Problems: Yes (anxiety) - Surgical History Abdominal Surgery: Yes (TUBAL SX) Appendectomy: No Cardiac Surgery: No Cholecystectomy: No Gastric Stapling: No GI Surgery: No Lung Surgery: No Neurologic Surgery: No - Reproductive History (#): 4 Para: 1 Polycystic Ovaries: Yes Therapeutic (s) & number: Yes (2) Spontaneous : 1 - Immunization History Immunization Up to Date: Yes - Suicide/Smoking/Psychosocial Hx Smoking Status: Yes Smoking History: Never smoked Have you smoked in the past 12 months: No Number of Cigarettes Smoked Daily: 0 Hx Alcohol Use: No Drug/Substance Use Hx: No Substance Use Type: None Review of Systems - Review of Systems Able to Perform ROS?: Yes Is the patient limited Danish proficient: No Constitutional: No: Weakness HEENTM: No: Symptoms Reported Respiratory: No: Symptoms reported Cardiac (ROS): No: Symptoms Reported ABD/GI: No: Symptoms Reported Musculoskeletal: Yes: See HPI, Muscle Pain (left little fingernail), Other ( left little finger injury with partial avulsion of fingernail) All Other Systems: Reviewed and Negative *Physical Exam - Vital Signs Last Vital Signs Temp Pulse Resp BP Pulse Ox 97.8 F 71 18 108/69 97 04/20/18 21:51 04/20/18 21:51 04/20/18 21:51 04/20/18 21:51 04/20/18 21:51 - Physical Exam Comments: 04/20/18 22:38 GENERAL: Well developed, well nourished. Awake and alert. No acute distress. CARDIOVASCULAR: Regular rate and rhythm. No murmurs, rubs, or gallops. Distal pulses are 2+ and symmetric. PULMONARY: No evidence of respiratory distress. Lungs clear to auscultation bilaterally. No wheezing, rales or rhonchi. ABDOMINAL: Soft. Non-tender. Non-distended. No rebound or guarding. No organomegaly. Normoactive bowel sounds. MUSCULOSKELETAL : mild tenderness to cuticle of left little finger with partially avulsion of long artificial fingernail. Normal range of motion at all joints. SKIN: Warm and dry. Normal capillary refill. no erythema ot drainage to little finger NEUROLOGICAL: Alert, awake, appropriate. Gait is normal without ataxia. PSYCHIATRIC: Cooperative. Good eye contact. Appropriate mood General Appearance: Yes: Nourished, Appropriately Dressed. No: Apparent Distress Moderate Sedation - Procedure Monitoring Vital Signs: Procedure Monitoring Vital Signs Temperature 97.8 F 04/20/18 21:51 Pulse Rate 71 04/20/18 21:51 Respiratory Rate 18 04/20/18 21:51 Blood Pressure 108/69 04/20/18 21:51 O2 Sat by Pulse Oximetry (%) 97 04/20/18 21:51 Medical Decision Making - Medical Decision Making 04/20/18 22:40 Patient with no past medical history present for reevaluation of left little finger injury status post hitting fingernail on a desk causing partial evulsion of finger nail 6 days ago. Patient reported persistent pain and loose artificial fingernail which patient refused to have fingernail removed. Fingernail reinforced with Steri-Strip. Motrin prescribed to take as needed for pain. Patient is stable for discharge to follow-up with hand specialist *DC/Admit/Observation/Transfer Diagnosis at time of Disposition: Finger contusion Qualifiers: Encounter type: subsequent encounter Finger: little finger Damage to nail status: with damage Laterality: left Qualified Code(s): S60.152D - Contusion of left little finger with damage to nail, subsequent encounter - Discharge Dispostion Disposition: HOME Condition at time of disposition: Stable Decision to Admit order: No - Prescriptions Prescriptions: Cephalexin [Keflex] 500 mg PO 10 #5 capsule Ibuprofen 800 mg PO Q8H PRN #20 tablet PRN Reason: pain - Referrals Referrals: Misael Deluca MD [Staff Physician] - - Patient Instructions Printed Discharge Instructions: DI for Finger Sprain Additional Instructions: Take prescribed medication for pain and infection prevention. Keep Steri-Strips on finger for another week to help with healing. Follow-up referred hand specialist if no improvement in 5 days. - Post Discharge Activity
== END 2018-04-20 22:36 | disposition home or self-care (01) ==
LOC: JERFT 21:50
DX: S60.15 Contusion of little finger with damage to nail (principal); W22.8XXD Striking against or struck by other objects, subsequent encounter
CPT/HCPCS: 99281-25

== ENCOUNTER 2018-04-30 13:00 | Emergency (ER) | payer OTHER ==
[2018-04-30 13:08] VITALS: BP 112/84; PULSE 85; TEMP 98.1; BMI 37.0
--- NOTE | 2018-04-30 13:40 | PDOC ---
History of Present Illness - General Chief Complaint: Pain Stated Complaint: REVISIT Time Seen by Provider: 04/30/18 13:30 - History of Present Illness Initial Comments: 04/30/18 13:36 32-year-old female presents for evaluation of left fifth finger issues. She states about a week ago she contused her finger which caused her nail to come loose. Since that time she was placed in a dressing and a splint for comfort but her nail remains loose. She believes is infected. She has no systemic symptoms or pain about the area. Past History - Past Medical History Allergies/Adverse Reactions: Allergies Allergy/AdvReac Type Severity Reaction Status Date / Time No Known Allergies Allergy Verified 04/30/18 13:08 Home Medications: Ambulatory Orders Cephalexin [Keflex] 500 mg PO 10 #5 capsule 04/20/18 Ibuprofen 800 mg PO Q8H PRN #20 tablet 04/20/18 Asthma: Yes COPD: No CHF: No Psychiatric Problems: Yes (anxiety) - Surgical History Abdominal Surgery: Yes (TUBAL SX) Appendectomy: No Cardiac Surgery: No Cholecystectomy: No Gastric Stapling: No GI Surgery: No Lung Surgery: No Neurologic Surgery: No - Reproductive History (#): 4 Para: 1 Polycystic Ovaries: Yes Therapeutic (s) & number: Yes (2) Spontaneous : 1 - Immunization History Immunization Up to Date: Yes - Suicide/Smoking/Psychosocial Hx Smoking Status: Yes Smoking History: Never smoked Have you smoked in the past 12 months: No Number of Cigarettes Smoked Daily: 0 Information on smoking cessation initiated: No Hx Alcohol Use: No Drug/Substance Use Hx: No Substance Use Type: None Review of Systems - Review of Systems Constitutional: No: Fever Musculoskeletal: Yes: See HPI *Physical Exam - Vital Signs Last Vital Signs Temp Pulse Resp BP Pulse Ox 98.1 F 85 19 112/84 100 04/30/18 13:06 04/30/18 13:06 04/30/18 13:06 04/30/18 13:06 04/30/18 13:06 - Physical Exam Comments: 04/30/18 13:36 Left fifth finger skin color and temperature are normal. There is no tenderness about the proximal nail fold there is no fluctuance warmth or tenderness. No induration. The nail is loose from the nail bed. The visualized portion of the nail bed is intact. No gross motor deficits. Moderate Sedation - Procedure Monitoring Vital Signs: Procedure Monitoring Vital Signs Temperature 98.1 F 04/30/18 13:06 Pulse Rate 85 04/30/18 13:06 Respiratory Rate 19 04/30/18 13:06 Blood Pressure 112/84 04/30/18 13:06 O2 Sat by Pulse Oximetry (%) 100 04/30/18 13:06 Medical Decision Making - Medical Decision Making 04/30/18 13:38 I have tape the nail down and referred the patient to hand surgery she is unhappy with the plan she would like me to remove the nail however I explained to her in great detail how the nail protects the nail bed she will follow-up with hand surgery. *DC/Admit/Observation/Transfer Diagnosis at time of Disposition: Fingernail avulsion - Discharge Dispostion Disposition: HOME Condition at time of disposition: Stable Decision to Admit order: No - Referrals Referrals: Misael Burton MD [Primary Care Provider] - Misael Deluca MD [Staff Physician] - - Patient Instructions Printed Discharge Instructions: DI for Nail Avulsion Injury Additional Instructions: Please trimmed the nail and make it even with their finger. Please keep the tape in place and replace it daily he may remove it for hygiene. May wash her hand with soap and water. Follow-up with hand surgery in 1-2 days for further evaluation and treatment options. He may continue to protect the nail with a splint and you're out but he do not require the splint at home. Return to the emergency room for further evaluation and treatment should her symptoms worsen and follow-up with hand surgery in 1-2 days. - Post Discharge Activity
== END 2018-04-30 13:42 | disposition home or self-care (01) ==
LOC: JERFT 13:00
DX: S61.307D Unspecified open wound of left little finger with damage to nail, subsequent encounter (principal); X58.XXXD Exposure to other specified factors, subsequent encounter; Y93.9 Activity, unspecified; Y92.9 Unspecified place or not applicable
CPT/HCPCS: 99281-25

== ENCOUNTER 2018-07-29 20:57 | Emergency (ER) | payer SELFPAY ==
--- NOTE | 2018-07-29 21:02 | PDOC ---
Rapid Medical Evaluation Time Seen by Provider: 07/29/18 20:59 Medical Evaluation: Allergies Allergy/AdvReac Type Severity Reaction Status Date / Time No Known Allergies Allergy Verified 04/30/18 13:08 07/29/18 20:59 Patient complains of: spoting since 07/20, did 2 preg test and both with faint lines, here to confirm Patient on brief exam: vss, no abd tenderness Patient ordered for: hcg urine Patient to proceed to the ED Discharge Disposition - Diagnosis Vaginal spotting - Referrals - Patient Instructions - Post Discharge Activity
[2018-07-29 21:03] VITALS: BP 122/73; PULSE 88; TEMP 98.3; BMI 36.8
--- NOTE | 2018-07-29 21:43 | PDOC ---
History of Present Illness - General Chief Complaint: Muscle Cramping Stated Complaint: CRAMPING Time Seen by Provider: 07/29/18 20:59 - History of Present Illness Initial Comments: 07/29/18 21:40 33 y/o F with irregular menstrual bleeding since 2 weeks ago and 2 positive tests at home presents for evaluation the emergency room. Past History - Past Medical History Allergies/Adverse Reactions: Allergies Allergy/AdvReac Type Severity Reaction Status Date / Time No Known Allergies Allergy Verified 04/30/18 13:08 Home Medications: Ambulatory Orders Cephalexin [Keflex] 500 mg PO 10 #5 capsule 04/20/18 Ibuprofen 800 mg PO Q8H PRN #20 tablet 04/20/18 Asthma: Yes COPD: No CHF: No Psychiatric Problems: Yes (anxiety) - Surgical History Abdominal Surgery: Yes (TUBAL SX) Appendectomy: No Cardiac Surgery: No Cholecystectomy: No Gastric Stapling: No GI Surgery: No Lung Surgery: No Neurologic Surgery: No - Reproductive History (#): 4 Para: 1 Polycystic Ovaries: Yes Therapeutic (s) & number: Yes (2) Spontaneous : 1 - Immunization History Immunization Up to Date: Yes - Suicide/Smoking/Psychosocial Hx Smoking Status: Yes Smoking History: Never smoked Have you smoked in the past 12 months: No Number of Cigarettes Smoked Daily: 0 Information on smoking cessation initiated: No Hx Alcohol Use: No Drug/Substance Use Hx: No Substance Use Type: None Review of Systems - Review of Systems : Yes: See HPI *Physical Exam - Vital Signs Last Vital Signs Temp Pulse Resp BP Pulse Ox 98.3 F 88 20 122/73 100 07/29/18 20:59 07/29/18 20:59 07/29/18 20:59 07/29/18 20:59 07/29/18 20:59 - Physical Exam Comments: 07/29/18 21:41 HEAD: NC/AT EYES: Conjuntiva clear Ears: Canals and TM's normal NOSE: No d/c THROAT: Moist mucous membrances, oral pharanx clear, uvula midline NECK: Supple without adenopathy CARDIAC: S1 S2 LUNGS: CTA Full and Equal breath sounds MS: Full ROM in all joints without edema NEUROLOGIC: No gross sensory or motor deficits, NVID SKIN: Normal color and temperature no lesions or rashes Medical Decision Making - Medical Decision Making 07/29/18 21:42 Order appropriate laboratory work and transfer this patient to the main emergency room for further evaluation and treatment. *DC/Admit/Observation/Transfer Diagnosis at time of Disposition: Vaginal spotting - Referrals - Patient Instructions - Post Discharge Activity
[2018-07-29 22:21] LABS: BASO % 0.9 % (0-2.0); EOS % 1.1 % (0-4.5); HEMOGLOBIN 12.2 GM/dL (10.7-15.3); LYMPH % 35.5 % (8-40); MCH 29.4 pg (25.7-33.7); MEAN CELL VOLUME 89.1 fl (80-96); MONO % 4.7 % (3.8-10.2); NEUT % 57.8 % (42.8-82.8); PLATELET COUNT 203 K/MM3 (134-434); RBC 4.15 M/mm3 (3.60-5.2); WHITE BLOOD COUNT 9.8 K/mm3 (4.0-10.0)
[2018-07-29 22:32] LABS: INR 1.1 (0.83-1.09)
[2018-07-29 22:57] LABS: ALBUMIN 3.4 g/dl (3.4-5.0); BILIRUBIN,TOTAL 0.2 mg/dL (0.2-1); BLOOD UREA NITROGEN 12.7 mg/dL (7-18); CALCIUM 8.8 mg/dL (8.5-10.1); CREATININE 0.9 mg/dL (0.55-1.3); TOT PROT 7.7 g/dl (6.4-8.2)
[2018-07-29 22:58] LABS: POTASSIUM 4.1 mmol/L (3.5-5.1)
--- NOTE | 2018-07-29 23:14 | PDOC ---
*Physical Exam - Vital Signs Last Vital Signs Temp Pulse Resp BP Pulse Ox 98.3 F 88 20 122/73 100 07/29/18 20:59 07/29/18 20:59 07/29/18 20:59 07/29/18 20:59 07/29/18 20:59 ED Treatment Course - LABORATORY CBC & Chemistry Diagram: 07/29/18 22:05 07/29/18 22:05 - ADDITIONAL ORDERS Additional order review: Laboratory Results 07/29/18 07/29/18 07/29/18 22:05 22:05 22:03 PT with INR 13.00 INR 1.10 H Sodium 138 Potassium 4.1 Chloride 105 Carbon Dioxide 29 Anion Gap 5 L BUN 12.7 Creatinine 0.9 Est GFR (CKD-EPI)AfAm 98.06 Est GFR (CKD-EPI)NonAf 84.60 Random Glucose 101 Calcium 8.8 Total Bilirubin 0.2 AST 47 H ALT 49 Alkaline Phosphatase 100 Total Protein 7.7 Albumin 3.4 Beta HCG, Quant 7.8 Urine HCG, Qual Blood Type Cancelled Antibody Screen Cancelled 07/29/18 21:38 PT with INR INR Sodium Potassium Chloride Carbon Dioxide Anion Gap BUN Creatinine Est GFR (CKD-EPI)AfAm Est GFR (CKD-EPI)NonAf Random Glucose Calcium Total Bilirubin AST ALT Alkaline Phosphatase Total Protein Albumin Beta HCG, Quant Urine HCG, Qual Negative Blood Type Antibody Screen 07/29/18 22:05 RBC 4.15 MCV 89.1 MCHC 33.0 RDW 13.0 MPV 9.0 Neutrophils % 57.8 Lymphocytes % 35.5 D Monocytes % 4.7 Eosinophils % 1.1 Basophils % 0.9 Medical Decision Making - Medical Decision Making 07/29/18 23:11 Beta HCG : 7 . previosu type and screen O positive. will d/c home close renewals representative follow up recommended 07/30/18 06:07 *DC/Admit/Observation/Transfer Diagnosis at time of Disposition: Vaginal spotting, Elevated serum hCG - Discharge Dispostion Disposition: HOME Condition at time of disposition: Stable - Referrals Referrals: Misael Burton MD [Primary Care Provider] - Vimal Byrd [Non Staff, Medical] - Call tomorrow - Patient Instructions Printed Discharge Instructions: DI for Vaginal Bleeding Additional Instructions: return to the ER if you are soaking 2 pads per hour, severe abdominal pain, or worsening symptoms. - Post Discharge Activity
== END 2018-07-29 23:40 | disposition home or self-care (01) ==
LOC: JERFT 20:57 → JER 20:57
DX: N93.8 Other specified abnormal uterine and vaginal bleeding (principal); E34.9 Endocrine disorder, unspecified
CPT/HCPCS: 36415; 80053; 84702; 84703; 85025; 85610; 99282-25

== ENCOUNTER 2018-10-12 21:49 | Emergency (ER) | payer OTHER ==
[2018-10-12] MEDS ORDERED: LIDOCAINE PATCH REMOVAL MC SCH (22:00)
[2018-10-12 22:05] VITALS: TEMP 97.9; BMI 37.0
[2018-10-12] MEDS ORDERED: ACETAMINOPHEN 500 MG TABLET (FP) PO ONE (22:43)
--- NOTE | 2018-10-12 22:43 | PDOC ---
History of Present Illness - General Chief Complaint: Pain Stated Complaint: L KNEE PAIN Time Seen by Provider: 10/12/18 22:34 - History of Present Illness Initial Comments: 10/12/18 22:51 33yo F no PMH presents from home c/o L knee and ankle swelling, pain, and TTP s/ p wrestling yesterday. Pt was wrestling yesterday afternoon and seemed fine, but then a couple hours later started to notice L knee and ankle swelling and pain. Denies popping sound or injury felt during wrestling. Denies other trauma , fall. Endorses L knee lateral swelling and pain and pain with flexion of knee , constant, throbbing type, 12/21, worse with walking, nothing makes better. Able to walk with limp. Also c/o lateral L ankle swelling and pain, but minimal , able to move ankle in all directions and walk on it. Tried heat, advil, and aleve without improvement. Pain worsening overnight. Endorses intermittent tingling of L big toe. Denies numbness, weakness, erythema, warmth, F/C, N/V. Past History - Past Medical History Allergies/Adverse Reactions: Allergies Allergy/AdvReac Type Severity Reaction Status Date / Time No Known Allergies Allergy Verified 10/12/18 22:01 Home Medications: Ambulatory Orders Cephalexin [Keflex] 500 mg PO 10 #5 capsule 04/20/18 Ibuprofen 800 mg PO Q8H PRN #20 tablet 04/20/18 Lidocaine 5% Patch [Lidoderm Patch -] 1 patch TP DAILY #30 patch 10/12/18 Asthma: Yes COPD: No CHF: No Psychiatric Problems: Yes (anxiety) - Surgical History Abdominal Surgery: Yes (TUBAL SX) Appendectomy: No Cardiac Surgery: No Cholecystectomy: No Gastric Stapling: No GI Surgery: No Lung Surgery: No Neurologic Surgery: No - Reproductive History (#): 4 Para: 1 Polycystic Ovaries: Yes Therapeutic (s) & number: Yes (2) Spontaneous : 1 - Immunization History Immunization Up to Date: Yes - Suicide/Smoking/Psychosocial Hx Smoking Status: Yes Smoking History: Never smoked Have you smoked in the past 12 months: No Number of Cigarettes Smoked Daily: 0 Hx Alcohol Use: No Drug/Substance Use Hx: No Substance Use Type: None Review of Systems - Review of Systems Comments:: 10/12/18 22:55 Constitutional: Negative for chills, fever, fatigue. HENT: Negative for sore throat, rhinorrhea, congestion. Eyes: Negative for visual disturbance. Respiratory: Negative for shortness of breath, cough, and wheezing. Cardiovascular: Negative for chest pain, palpitations, and leg swelling. Gastrointestinal: Negative for abdominal pain, blood in stool, constipation, diarrhea, nausea, and vomiting. Genitourinary: Negative for dysuria, flank pain, and hematuria. Musculoskeletal: Positive for L knee and L ankle pain and swelling. Negative for myalgias, back pain, and neck pain. Skin: Negative for rash. Neurological: Negative for light-headedness, dizziness, syncope, weakness, numbness and headaches. Psychiatric/Behavioral: Negative for behavioral problems and confusion. *Physical Exam - Vital Signs Last Vital Signs Temp Pulse Resp BP Pulse Ox 97.9 F 68 18 115/66 100 10/12/18 22:02 10/12/18 22:02 10/12/18 22:02 10/12/18 22:02 10/12/18 22:02 - Physical Exam Comments: 10/12/18 22:55 Gen: Alert, NAD, comfortable-appearing. HEENT: PERRL, EOMI, MMM, NCAT. No conjunctival pallor. Sclera are non-icteric. CV: Regular rate and rhythm. No murmurs, rubs, or gallops. PULM: No resp distress. CTAB, no wheezes, rales, or rhonchi. ABD: soft, NT/ND, no rebound tenderness or guarding MSK: No bony deformities. 2+ pulses in all extremities. NEURO: AAOx3. PERRL. No gross CN deficits. Strength and sensation grossly intact throughout. EXTREMITIES: No cyanosis. No clubbing. No calf tenderness. L knee: No bony or soft tissue deformities. No erythema or warmth. Mild swelling worse on lateral side, no effusion. Decreased flexion 2/2 pain. No patellar crepitus or pain. TTP laterally but not medially. No pain with palpation of the patellar and quad tendons. No swelling or pain over the pes anserine bursa. MCL testing shows no laxity of pain. LCL testing shows pain without laxity. Anterior and posterior drawer test show no ACL or PCL laxity. Popliteal space without mass or tenderness. L ankle: Mild swelling on lateral side. No erythema or warmth. No bony deformities. Full ROM. No crepitus. No midfoot TTP. No TTP of medial malleolus. +TTP tip of lateral malleolus. LLE: no TTP or swelling of L lower leg, thigh, or hip. 2+ pulses, sensation intact to light touch, full ROM of toes, <2 sec cap refill. PSYCH: Normal mood and thought pattern. SKIN: Warm and dry. Normal capillary refill. No rashes. No jaundice. Medical Decision Making - Medical Decision Making 10/12/18 22:48 33yo F no PMH presents from home with L knee and ankle swelling, pain, and TTP s /p wrestling yesterday. Hemodynamically stable, afebrile, no other injuries. Most likely contusion vs ligament strain vs muscle strain, but will obtain XRs to r/o fx or dislocation due to decreased ROM of L knee and TTP of L knee and L ankle. Long Knee Rule - unable to flex knee to 90 degrees and tenderness to fibular head. Long Ankle Rule - tender at tip of lateral malleolus. -XR L knee and L ankle -Tylenol for pain -Dispo: likely d/c home w/ortho f/u pending w/u 10/12/18 23:44 Pt states she wants to leave and doesn't want to wait for XRs. Pt is walking on leg. Ordered knee immobilizer. Dr Chisholm with pt. 10/12/18 23:55 Lidoderm patch ordered for pain. Will dc home with ortho f/u, strict return precautions, and knee immobilizer. Return precautions given. Pt understands all dc instructions and all questions were answered. *DC/Admit/Observation/Transfer Diagnosis at time of Disposition: Knee pain, left, Ankle pain, left - Discharge Dispostion Disposition: HOME Condition at time of disposition: Stable Decision to Admit order: No - Prescriptions Prescriptions: Lidocaine 5% Patch [Lidoderm Patch -] 1 patch TP DAILY #30 patch - Referrals Referrals: Rashaad Santamaria MD [Staff Physician] - - Patient Instructions Printed Discharge Instructions: DI for Ankle Sprain, DI for Knee Pain Additional Instructions: You have been seen in the Emergency Department for your left knee and left ankle injury and pain. Your X-rays show no signs of fracture or dislocation. Your pain is most likely a strain or sprain of a ligament or muscle. We have given you a referral to an Orthopedic Surgeon for further evaluation. Give his office a call to set up an appointment for this week. If you experience pain, you can take Tylenol or Ibuprofen as directed on the medication bottle, but do not exceed 3g of Ibuprofen or 4g of Tylenol a day. We have also prescribed you Lidocaine patches which you may apply for pain - use as directed. Follow the RICE protocol to help with the healing process: R - Rest. Rest and protect the injured or sore area. Stop, change, or take a break from any activity that may be causing your pain or soreness. I - Ice. Cold will reduce pain and swelling. Apply an ice or cold pack right away to prevent or minimize swelling. Apply the ice or cold pack for 10 to 20 minutes, 3 or more times a day. After 48 to 72 hours, if swelling is gone, apply heat to the area that hurts. Do not apply ice or heat directly to the skin. Place a towel over the cold or heat pack before applying it to the skin. C - Compression. Compression, or wrapping the injured or sore area with an elastic bandage (such as an Andre wrap), will help decrease swelling. Don't wrap it too tightly, because this can cause more swelling below the affected area. Loosen the bandage if it gets too tight. Signs that the bandage is too tight include numbness, tingling, increased pain, coolness, or swelling in the area below the bandage. E - Elevation. Elevate the injured or sore area on pillows while applying ice and anytime you are sitting or lying down. Try to keep the area at or above the level of your heart to help minimize swelling. Return to the ED immediately if you experience worsening pain not controlled by over the counter medications, numbness or tingling, weakness, fever, worsening swelling, or any other new or worsening symptom. - Post Discharge Activity
[2018-10-12] MEDS ORDERED: ACETAMINOPHEN 325 MG TABLET (FP) ONE (22:57)
[2018-10-12] MEDS ORDERED: LIDOCAINE 5% TOPICAL PATCH TP ONE (23:51)
[2018-10-13] MEDS ORDERED: LIDOCAINE 5% TOPICAL PATCH ONE ×2 (00:15→00:29)
[2018-10-13] MEDS ORDERED: LIDOCAINE 5% TOPICAL PATCH TP ONE (00:28)
[2018-10-13 01:40] VITALS: BP 121/73; PULSE 69
[2018-10-13] MEDS ORDERED: LIDOCAINE PATCH REMOVAL MC SCH (22:00)
== END 2018-10-13 00:25 | disposition home or self-care (01) ==
LOC: JER 21:49
DX: M25.562 Pain in left knee (principal); M25.572 Pain in left ankle and joints of left foot; X50.9XXA Other and unspecified overexertion or strenuous movements or postures, initial encounter; Y93.72 Activity, wrestling; Y92.89 Other specified places as the place of occurrence of the external cause; Y99.8 Other external cause status
CPT/HCPCS: 73562-TC-LT-FY; 73610-TC-LT-FY; 99282-25

== ENCOUNTER 2018-11-21 13:28 | Emergency (ER) | payer OTHER ==
[2018-11-21 13:44] VITALS: BP 123/70; PULSE 69; TEMP 97.8; BMI 38.3
[2018-11-21] MEDS ORDERED: KETOROLAC TROMETHAMINE 60 MG/2 ML VIAL IM ONE (14:59)
[2018-11-21] MEDS ORDERED: KETOROLAC TROMETHAMINE 60 MG/2 ML VIAL ONE (15:05)
--- NOTE | 2018-11-21 15:10 | PDOC ---
History of Present Illness - General Chief Complaint: Injury Stated Complaint: POSSIBLE BROKEN FINGER Time Seen by Provider: 11/21/18 14:30 History Source: Patient Exam Limitations: Clinical Condition - History of Present Illness Initial Comments: 11/21/18 15:12 Patient with no significant past medical history present with complaint of right middle finger pain radiating to right hand status post slipping for an outstretched hand 1 hour ago. Denies hitting her head or loss of consciousness. Reports increased pain to right middle finger with bending of finger. Denies any other symptoms Occurred: reports: just prior to arrival Past History - Past Medical History Allergies/Adverse Reactions: Allergies Allergy/AdvReac Type Severity Reaction Status Date / Time No Known Allergies Allergy Verified 11/21/18 13:42 Home Medications: Ambulatory Orders Ibuprofen 800 mg PO Q8H PRN #20 tablet 11/21/18 metFORMIN HCL [Metformin HCl] 500 mg PO BID 11/21/18 Asthma: Yes COPD: No CHF: No Psychiatric Problems: Yes (anxiety) - Surgical History Abdominal Surgery: Yes (TUBAL SX) Appendectomy: No Cardiac Surgery: No Cholecystectomy: No Gastric Stapling: No GI Surgery: No Lung Surgery: No Neurologic Surgery: No - Reproductive History (#): 4 Para: 1 Polycystic Ovaries: Yes Therapeutic (s) & number: Yes (2) Spontaneous : 1 - Immunization History Immunization Up to Date: Yes - Psycho Social/Smoking Cessation Hx Smoking Status: Yes Smoking History: Never smoked Have you smoked in the past 12 months: No Number of Cigarettes Smoked Daily: 0 Hx Alcohol Use: No Drug/Substance Use Hx: No Substance Use Type: None Review of Systems - Review of Systems Able to Perform ROS?: Yes Is the patient limited B[place]udian proficient: No Constitutional: No: Malaise, Weakness HEENTM: No: Symptoms Reported Respiratory: No: Symptoms reported Cardiac (ROS): No: Symptoms Reported ABD/GI: No: Symptoms Reported Musculoskeletal: Yes: Symptoms Reported, See HPI, Joint Pain (right middle finger), Joint Swelling (right middle finger), Muscle Pain (right middle finger) Integumentary: Yes: Symptoms Reported, See HPI, Other (swelling to right middle finger) Neurological: No: Symptoms reported, See HPI, Dizziness All Other Systems: Reviewed and Negative *Physical Exam - Vital Signs Last Vital Signs Temp Pulse Resp BP Pulse Ox 97.8 F 69 16 123/70 100 11/21/18 13:42 11/21/18 13:42 11/21/18 13:42 11/21/18 13:42 11/21/18 13:42 - Physical Exam Comments: 11/21/18 15:06 GENERAL: Well developed, well nourished. Awake and alert in mild acute distress. PULMONARY: No evidence of respiratory distress. MUSCULOSKELETAL : mild tenderness over dorsum of right hand overlying the third metatarsal with moderate tenderness with mild swelling to right middle finger. Full range of motion of right middle finger. No bony deformities. No tenderness to right wrist. Full range of motion of right wrist. SKIN: Warm and dry. Normal capillary refill. Mild swelling to right middle finger. No ecchymosis or bruising to finger or hand.. NEUROLOGICAL: Alert, awake, appropriate. No motor deficits in the lower extremities. Gait is normal without ataxia. PSYCHIATRIC: Cooperative. Good eye contact. Appropriate mood and affect. General Appearance: Yes: Nourished, Appropriately Dressed. No: Apparent Distress ED Treatment Course - RADIOLOGY Radiology Studies Ordered: Category Date Time Status FINGER(S) LEFT [RAD] Stat Radiology 11/21/18 14:31 Completed FINGER(S) RIGHT [RAD] Stat Radiology 11/21/18 15:03 Ordered HAND- LEFT [RAD] Stat Radiology 11/21/18 14:31 Taken HAND- RIGHT [RAD] Stat Radiology 11/21/18 15:03 Ordered Medical Decision Making - Medical Decision Making 11/21/18 15:14 Patient with no significant past medical history present with complaint of right middle finger pain radiating to right hand status post slipping for an outstretched hand 1 hour ago. Denies hitting her head or loss of consciousness. Reports increased pain to right middle finger with bending of finger. Denies any other symptoms Exam significant for moderate tenderness to whole right middle finger from proximal phalanx to distal phalange with mild tenderness over third metacarpals right middle finger. Full range of motion of right middle finger and hand. No tenderness to right wrist. X-ray of right middle finger and hand shows no acute fracture or dislocation. Symptoms likely finger and hand sprain. Right hand wrapped with Andre bandage. Toradol 60 mg IM ordered for pain. Patient stable for discharge on Motrin as needed for pain with advised to apply cold compress today switch to hot compress tomorrow as needed for swelling with orthopedist follow-up as needed. Patient stable for discharge Discharge - Discharge Information Problems reviewed: Yes Clinical Impression/Diagnosis: Swelling of right middle finger Sprain of right hand Qualifiers: Encounter type: initial encounter Qualified Code(s): S63.91XA - Sprain of unspecified part of right wrist and hand, initial encounter Condition: Stable Disposition: HOME - Admission No - Additional Discharge Information Prescriptions: Ibuprofen 800 mg PO Q8H PRN #20 tablet PRN Reason: pain - Follow up/Referral Referrals: Juan Carlos Bacon MD [Staff Physician] - - Patient Discharge Instructions Patient Printed Discharge Instructions: DI for Finger Sprain Additional Instructions: X-ray of your right hand and fingers shows no acute fracture or dislocation. Your pain is likely caused by hand and finger sprain. Take prescribe medication as needed for pain. Apply cool compress today switch to her compress tomorrow as needed for swelling. Keep right hand elevated for the next 24 hours. Follow-up with referred hand specialist if no improvement in 4 days. - Post Discharge Activity
== END 2018-11-21 15:14 | disposition home or self-care (01) ==
LOC: JERFT 13:28
PROC: 3E0233Z Introduction of Anti-inflammatory into Muscle, Percutaneous Approach (ICD-10-PCS; principal; 2018-11-21)
DX: S63.8X1A Sprain of other part of right wrist and hand, initial encounter (principal); S63.692A Other sprain of right middle finger, initial encounter; J45.909 Unspecified asthma, uncomplicated; F41.9 Anxiety disorder, unspecified; W18.39XA Other fall on same level, initial encounter; Y93.89 Activity, other specified; Y92.89 Other specified places as the place of occurrence of the external cause; Y99.8 Other external cause status
CPT/HCPCS: 73130-TC-LT-FY; 73130-TC-RT-FY; 73140-TC-LT-FY; 73140-TC-RT-FY; 99281-25

== ENCOUNTER 2019-02-20 09:13 | Emergency (ER) | payer OTHER ==
[2019-02-20 09:32] VITALS: TEMP 97.7; BMI 34.4
[2019-02-20] MEDS ORDERED: ACETAMINOPHEN 1000 MG/100 ML VIAL (NON FORMULARY) IVPB ONE (09:34)
[2019-02-20] MEDS ORDERED: LACTATED RINGERS SOLUTION 1000 ML INFUS.BAG IV ONE (09:34)
[2019-02-20] MEDS ORDERED: METHOCARBAMOL 750 MG TAB PO STA (09:34)
[2019-02-20] MEDS ORDERED: ACETAMINOPHEN INJECTION 100 ML IVPB ONE (09:47)
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
[2019-02-20 10:23] LABS: BASO % 1.1 % (0-2.0); EOS % 0.7 % (0-4.5); HEMATOCRIT 38.2 % (32.4-45.2); HEMOGLOBIN 12.5 GM/dL (10.7-15.3); LYMPH % 23.8 % (8-40); MCH 29.3 pg (25.7-33.7); MCHC 32.8 g/dl (32.0-36.0); MEAN CELL VOLUME 89.5 fl (80-96); NEUT % 68.4 % (42.8-82.8); PLATELET COUNT 210 K/MM3 (134-434); RBC 4.27 M/mm3 (3.60-5.2); RDW 12.9 % (11.6-15.6); WHITE BLOOD COUNT 8.9 K/mm3 (4.0-10.0)
[2019-02-20 10:48] LABS: ALBUMIN 3.4 g/dl (3.4-5.0); ALK PHOS 75 U/L (45-117); ANION GAP 8 MMOL/L (8-16); BILIRUBIN,TOTAL 0.2 mg/dL (0.2-1); BLOOD UREA NITROGEN 9.5 mg/dL (7-18); CALCIUM 9.5 mg/dL (8.5-10.1); CHLORIDE 105 mmol/L (98-107); CO2 25 mmol/L (21-32); CREATININE 0.8 mg/dL (0.55-1.3); GLUCOSE,RANDOM 87 mg/dL (74-106); POTASSIUM 3.9 mmol/L (3.5-5.1); SGOT/AST 17 U/L (15-37); SGPT/ALT 24 U/L (13-61); SODIUM 137 mmol/L (136-145); TOT PROT 7.4 g/dl (6.4-8.2)
[2019-02-20] MEDS ORDERED: KETOROLAC TROMETHAMINE 15 MG/ML VIAL IVPUSH ONE (13:11)
[2019-02-20] MEDS ORDERED: KETOROLAC TROMETHAMINE 30 MG/1 ML VIAL ONE (13:17)
[2019-02-20 13:29] VITALS: BP 167/74; PULSE 75
== END 2019-02-20 13:28 | disposition home or self-care (01) ==
LOC: JER 09:13
CPT/HCPCS: 36415; 70450-TC; 71250-TC; 72125-TC; 74176-TC; 80053; 84484; 84703; 85025; 99285-25; J0131

== ENCOUNTER 2020-09-20 14:21 | Emergency (ER) | payer OTHER ==
[2020-09-20 14:37] VITALS: BP 105/71; PULSE 67; TEMP 98.1; BMI 34.4
[2020-09-20] MEDS ORDERED: KETOROLAC TROMETHAMINE 30 MG/1 ML VIAL IM ONE (15:02)
[2020-09-20] MEDS ORDERED: ACETAMINOPHEN/CAFFEINE/BUTALBITAL 1 TAB PO ONE (15:02)
== END 2020-09-20 15:05 | disposition left against medical advice (07) ==
LOC: JERFT 14:21 → JER 14:21
DX: R51.9 Headache, unspecified (principal)
CPT/HCPCS: 99281-25

== ENCOUNTER 2020-10-01 22:25 | Emergency (ER) | payer OTHER ==
[2020-10-01 22:32] VITALS: BP 122/73; PULSE 95; TEMP 98.3; BMI 35.2
[2020-10-01] MEDS ORDERED: ACETAMINOPHEN 500 MG TABLET (FP) PO ONE (23:18)
[2020-10-01] MEDS ORDERED: ACETAMINOPHEN 325 MG TABLET (FP) ONE (23:29)
[2020-10-01 23:56] LABS: BASO % 0.6 % (0-2.0); EOS % 0.7 % (0-4.5); HEMATOCRIT 38.9 % (32.4-45.2); HEMOGLOBIN 13.1 GM/dL (10.7-15.3); LYMPH % 21.5 % (8-40); MCH 29.4 pg (25.7-33.7); MCHC 33.8 g/dl (32.0-36.0); MEAN CELL VOLUME 87.2 fl (80-96); MEAN PLT VOLUME 8.4 fl (7.5-11.1); MONO % 5.8 % (3.8-10.2); NEUT % 71.4 % (42.8-82.8); PLATELET COUNT 207 10^3/uL (134-434); RBC 4.46 M/mm3 (3.60-5.2); RDW 12.8 % (11.6-15.6); WHITE BLOOD COUNT 12.1 K/mm3 (4.0-10.0)
[2020-10-02] LABS: HCG,QUALITATIVE URINE Negative
[2020-10-02 00:01] LABS: PH,URINE 5.5 (5.0-8.0); URINE APPEARANCE CLEAR; URINE BILIRUBIN NEGATIVE (NEGATIVE); URINE COLOR YELLOW; URINE GLUCOSE (UA) NEGATIVE (NEGATIVE); URINE KETONE NEGATIVE (NEGATIVE); URINE LEUK ESTERASE NEGATIVE (NEGATIVE); URINE NITRITE NEGATIVE (NEGATIVE); URINE PROTEIN NEGATIVE (NEGATIVE); URINE UROBILINOGEN 0.2 mg/dL (0.2-1.0)
[2020-10-02 00:16] LABS: CALCIUM 9.2 mg/dL (8.5-10.1)
[2020-10-02 00:17] LABS: ALBUMIN 3.9 g/dl (3.4-5.0); BLOOD UREA NITROGEN 11.7 mg/dL (7-18)
[2020-10-02 00:20] LABS: CREATININE 0.9 mg/dL (0.55-1.3)
[2020-10-02 00:21] LABS: BILIRUBIN,TOTAL 0.4 mg/dL (0.2-1)
[2020-10-02 00:22] LABS: TOT PROT 8.2 g/dl (6.4-8.2)
== END 2020-10-02 01:04 | disposition home or self-care (01) ==
LOC: JER 22:25
DX: K62.5 Hemorrhage of anus and rectum (principal)
CPT/HCPCS: 36415; 80053; 81003; 82272; 84703; 85025; 87086; 99283-25

== ENCOUNTER 2020-10-15 18:28 | Emergency (ER) | payer OTHER ==
[2020-10-15 19:22] VITALS: BP 120/80; PULSE 67; BMI 37.3
== END 2020-10-15 19:55 | disposition home or self-care (01) ==
LOC: JER 18:28
DX: M79.645 Pain in left finger(s) (principal); W23.1XXA Caught, crushed, jammed, or pinched between stationary objects, initial encounter
CPT/HCPCS: 73140-TC-LT-FY; 99283-25

== ENCOUNTER 2020-10-24 13:17 | Emergency (ER) | payer OTHER ==
[2020-10-24 13:56] VITALS: BP 124/89; PULSE 71; TEMP 97.9; BMI 28.1
[2020-10-24] MEDS ORDERED: KETOROLAC TROMETHAMINE 30 MG/1 ML VIAL IM ONE (14:34)
[2020-10-24] MEDS ORDERED: KETOROLAC TROMETHAMINE 30 MG/1 ML VIAL ONE (14:40)
== END 2020-10-24 14:50 | disposition home or self-care (01) ==
LOC: JERFT 13:17
PROC: 3E023GC Introduction of Other Therapeutic Substance into Muscle, Percutaneous Approach (ICD-10-PCS; principal; 2020-10-24)
DX: G43.909 Migraine, unspecified, not intractable, without status migrainosus (principal)
CPT/HCPCS: 96372; 99284-25

== ENCOUNTER 2020-10-29 04:31 | Emergency (ER) | payer OTHER ==
[2020-10-29 05:17] VITALS: BMI 36.8
[2020-10-29] MEDS ORDERED: MAG HYDROX/AL HYDROX/SIMETH 30 ML UNIT-DOSE CUP PO ONE (06:02)
[2020-10-29] MEDS ORDERED: ONDANSETRON 4 MG/2 ML VIAL IVPUSH ONE (06:02)
[2020-10-29] MEDS ORDERED: ACETAMINOPHEN 1000 MG/100 ML VIAL (NON FORMULARY) IVPB ONE (06:02)
[2020-10-29] MEDS ORDERED: SODIUM CHLORIDE 0.9% 500 ML INFUS.BAG IV ONE (06:02)
[2020-10-29] MEDS ORDERED: FAMOTIDINE 20 MG/50 ML IVPB 20 MG/50 ML MG IVPB ONE ×2 (06:02→06:09)
[2020-10-29] MEDS ORDERED: ONDANSETRON 4 MG/2 ML VIAL ONE (06:08)
[2020-10-29] MEDS ORDERED: MAG HYDROX/AL HYDROX/SIMETH 30 ML UNIT-DOSE CUP ONE (06:08)
[2020-10-29] MEDS ORDERED: ACETAMINOPHEN INJECTION 100 ML IVPB ONE (06:08)
[2020-10-29 07:31] LABS: BASO % 0.1 % (0-2.0); EOS % 0.9 % (0-4.5); HEMATOCRIT 35.9 % (32.4-45.2); LYMPH % 26.9 % (8-40); MCH 29.5 pg (25.7-33.7); MCHC 33.5 g/dl (32.0-36.0); MEAN CELL VOLUME 88.1 fl (80-96); MEAN PLT VOLUME 9.1 fl (7.5-11.1); MONO % 7.2 % (3.8-10.2); NEUT % 64.9 % (42.8-82.8); PLATELET COUNT 191 10^3/uL (134-434); RBC 4.08 M/mm3 (3.60-5.2); RDW 13.1 % (11.6-15.6); WHITE BLOOD COUNT 11.1 K/mm3 (4.0-10.0)
[2020-10-29 08:00] LABS: CALCIUM 8.7 mg/dL (8.5-10.1)
[2020-10-29 08:01] LABS: ALBUMIN 3.4 g/dl (3.4-5.0); BLOOD UREA NITROGEN 10.5 mg/dL (7-18)
[2020-10-29 08:04] LABS: CREATININE 0.8 mg/dL (0.55-1.3)
[2020-10-29 08:07] LABS: BILIRUBIN,TOTAL 0.2 mg/dL (0.2-1); TOT PROT 7.8 g/dl (6.4-8.2)
[2020-10-29 09:24] VITALS: BP 105/65; PULSE 65; TEMP 98.1
[2020-10-29] MEDS ORDERED: SUCRALFATE 1 GM/10 ML UNIT DOSE CUPS PO SCH (10:00)
== END 2020-10-29 09:25 | disposition home or self-care (01) ==
LOC: JER 04:31
PROC: 3E033NZ Introduction of Analgesics, Hypnotics, Sedatives into Peripheral Vein, Percutaneous Approach (ICD-10-PCS; principal; 2020-10-29)
PROC: 3E033GC Introduction of Other Therapeutic Substance into Peripheral Vein, Percutaneous Approach (ICD-10-PCS; 2020-10-29)
PROC: 3E033GC Introduction of Other Therapeutic Substance into Peripheral Vein, Percutaneous Approach (ICD-10-PCS; 2020-10-29)
DX: R11.2 Nausea with vomiting, unspecified (principal)
CPT/HCPCS: 36415; 80053; 84703; 85025; 99284-25; C9803; J0131; U0003; U0005

== ENCOUNTER 2021-02-28 23:02 | Emergency (ER) | payer OTHER ==
[2021-02-28 23:07] VITALS: BP 131/73; PULSE 88; TEMP 98.1; BMI 37.0
[2021-03-01] MEDS ORDERED: KETOROLAC TROMETHAMINE 30 MG/1 ML VIAL IM ONE (01:22)
[2021-03-01] MEDS ORDERED: KETOROLAC TROMETHAMINE 30 MG/1 ML VIAL ONE (01:55)
== END 2021-03-01 02:29 | disposition home or self-care (01) ==
LOC: JER 23:02
PROC: 3E0233Z Introduction of Anti-inflammatory into Muscle, Percutaneous Approach (ICD-10-PCS; principal; 2021-02-28)
DX: J20.9 Acute bronchitis, unspecified (principal); R05.1 Acute cough
CPT/HCPCS: 71046-TC-FY; 99284-25

== ENCOUNTER 2021-05-30 08:49 | Emergency (ER) | payer OTHER ==
[2021-05-30 08:56] VITALS: BP 117/75; PULSE 59; TEMP 98; BMI 34.4
== END 2021-05-30 10:15 | disposition home or self-care (01) ==
LOC: JER 08:49 → JERFT 08:49
DX: B35.1 Tinea unguium (principal)
CPT/HCPCS: 99281-25

== ENCOUNTER 2021-10-31 16:52 | Emergency (ER) | payer OTHER ==
[2021-10-31 17:03] VITALS: BP 124/70; PULSE 77; RESP 20; TEMP 98.1; BMI 35.2
[2021-10-31] MEDS ORDERED: SODIUM CHLORIDE 1,000 ML IV STA (17:26)
[2021-10-31] MEDS ORDERED: ACETAMINOPHEN 1000 MG/100 ML BAG IVPB ONE (17:34)
[2021-10-31] MEDS ORDERED: ONDANSETRON 4 MG/2 ML VIAL IVPUSH ONE (17:34)
[2021-10-31] MEDS ORDERED: FAMOTIDINE 20 MG/50 ML IVPB 20 MG/50 ML MG IVPB ONE ×2 (17:34→17:59)
[2021-10-31] MEDS ORDERED: MAG HYDROX/AL HYDROX/SIMETH 30 ML UNIT-DOSE CUP PO ONE (17:35)
[2021-10-31] MEDS ORDERED: MAG HYDROX/AL HYDROX/SIMETH 30 ML UNIT-DOSE CUP ONE (17:58)
[2021-10-31] MEDS ORDERED: ACETAMINOPHEN INJECTION 100 ML IVPB ONE (17:58)
[2021-10-31] MEDS ORDERED: ONDANSETRON 4 MG/2 ML VIAL ONE (17:59)
[2021-10-31 19:39] LABS: BASO % 0.4 % (0-2.0); EOS % 0.9 % (0-4.5); HEMATOCRIT 37.4 % (32.4-45.2); HEMOGLOBIN 12.3 GM/dL (10.7-15.3); LYMPH % 26.9 % (8-40); MCH 29.5 pg (25.7-33.7); MCHC 32.7 g/dl (32.0-36.0); MEAN CELL VOLUME 90.1 fl (80-96); MEAN PLT VOLUME 9.3 fl (7.5-11.1); MONO % 6.7 % (3.8-10.2); NEUT % 65.1 % (42.8-82.8); PLATELET COUNT 209 10^3/uL (134-434); RBC 4.16 M/mm3 (3.60-5.2); WHITE BLOOD COUNT 10.3 K/mm3 (4.0-10.0)
[2021-10-31 19:54] LABS: ALBUMIN 3.4 g/dl (3.4-5.0); BLOOD UREA NITROGEN 12.5 mg/dL (7-18); CALCIUM 9.2 mg/dL (8.5-10.1)
[2021-10-31 20:07] LABS: BILIRUBIN,TOTAL 0.3 mg/dL (0.2-1); CREATININE 0.7 mg/dL (0.55-1.3); TOT PROT 7.2 g/dl (6.4-8.2)
[2021-10-31 21:35] LABS: EPI CELLS 11 /uL (0-25.1); HYALINE CASTS 0 /uL (0-3.1); URINE APPEARANCE CLEAR; URINE BACTERIA 125 /uL (0-1359); URINE BILIRUBIN NEGATIVE (NEGATIVE); URINE COLOR YELLOW; URINE GLUCOSE (UA) NEGATIVE (NEGATIVE); URINE KETONE NEGATIVE (NEGATIVE); URINE LEUK ESTERASE NEGATIVE (NEGATIVE); URINE NITRITE NEGATIVE (NEGATIVE); URINE PROTEIN NEGATIVE (NEGATIVE); URINE RBC 7 /uL (0-23.9); URINE UROBILINOGEN 0.2 mg/dL (0.2-1.0); URINE WBC 6 /uL (0-25.8)
[2021-10-31 21:36] LABS: HCG,QUALITATIVE URINE Negative
== END 2021-10-31 21:50 | disposition home or self-care (01) ==
LOC: JER 16:52
PROC: 3E0333Z Introduction of Anti-inflammatory into Peripheral Vein, Percutaneous Approach (ICD-10-PCS; principal; 2021-10-31)
PROC: 3E033GC Introduction of Other Therapeutic Substance into Peripheral Vein, Percutaneous Approach (ICD-10-PCS; 2021-10-31)
PROC: 3E0337Z Introduction of Electrolytic and Water Balance Substance into Peripheral Vein, Percutaneous Approach (ICD-10-PCS; 2021-10-31)
DX: R11.0 Nausea (principal); K29.00 Acute gastritis without bleeding
CPT/HCPCS: 36415; 76705-TC; 80053; 81003; 83690; 84703; 85025; 87086; 99284-25

== ENCOUNTER 2022-02-04 13:11 | Emergency (ER) | payer OTHER ==
[2022-02-04 13:32] VITALS: BP 138/75; PULSE 76; RESP 18; TEMP 97.8; BMI 36.3
[2022-02-04] MEDS ORDERED: ACETAMINOPHEN 325 MG TABLET (FP) PO ONE (13:56)
[2022-02-04] MEDS ORDERED: ACETAMINOPHEN 325 MG TABLET (FP) ONE (14:03)
== END 2022-02-04 15:52 | disposition home or self-care (01) ==
LOC: JER 13:11
DX: U07.1 COVID-19 (principal)
CPT/HCPCS: 0241U-QW; 99283-25

== ENCOUNTER 2023-03-25 12:42 | Emergency (ER) | payer OTHER ==
[2023-03-25 12:55] VITALS: BMI 36.3
[2023-03-25 14:47] LABS: EPI CELLS 18 /uL (0-25.1); HYALINE CASTS 0 /uL (0-3.1); PH,URINE 5.5 (5.0-8.0); URINE APPEARANCE CLOUDY; URINE BACTERIA 59 /uL (0-1359); URINE BILIRUBIN NEGATIVE (NEGATIVE); URINE COLOR ORANGE; URINE GLUCOSE (UA) NEGATIVE (NEGATIVE); URINE KETONE NEGATIVE (NEGATIVE); URINE LEUK ESTERASE NEGATIVE (NEGATIVE); URINE NITRITE NEGATIVE (NEGATIVE); URINE PROTEIN 1+ (NEGATIVE); URINE RBC 7802 /uL (0-23.9); URINE UROBILINOGEN 0.2 mg/dL (0.2-1.0); URINE WBC 26 /uL (0-25.8)
[2023-03-25 14:53] LABS: BASO % 0.6 % (0-2.0); EOS % 0.9 % (0-4.5); HEMOGLOBIN 13.3 GM/dL (10.7-15.3); MCH 29.9 pg (25.7-33.7); MCHC 33.3 g/dl (32.0-36.0); MEAN CELL VOLUME 89.8 fl (80-96); MEAN PLT VOLUME 8.5 fl (7.5-11.1); MONO % 5.5 % (3.8-10.2); PLATELET COUNT 218 10^3/uL (134-434); RBC 4.45 M/mm3 (3.60-5.2); RDW 12.8 % (11.6-15.6); WHITE BLOOD COUNT 10.8 K/mm3 (4.0-10.0)
[2023-03-25 15:13] LABS: CHLORIDE 105 mmol/L (98-107); POTASSIUM 3.8 mmol/L (3.5-5.1); SODIUM 136 mmol/L (136-145)
[2023-03-25 15:15] LABS: ALBUMIN 3.8 g/dl (3.4-5.0); ANION GAP 5 mmol/L (4-13); BLOOD UREA NITROGEN 10.5 mg/dL (7-18); CALCIUM 9.2 mg/dL (8.5-10.1); CO2 26 mmol/L (21-32); GLUCOSE,RANDOM 96 mg/dL (74-106)
[2023-03-25 15:18] LABS: CREATININE 0.8 mg/dL (0.55-1.3); SGOT/AST 22 U/L (15-37); SGPT/ALT 35 U/L (13-61)
[2023-03-25 15:20] LABS: BILIRUBIN,TOTAL 0.5 mg/dL (0.2-1)
[2023-03-25 15:21] LABS: ALK PHOS 86 U/L (45-117)
[2023-03-25 16:18] VITALS: BP 140/89; PULSE 73; RESP 17; TEMP 98.3
== END 2023-03-25 16:18 | disposition home or self-care (01) ==
LOC: JER 12:42
DX: N93.9 Abnormal uterine and vaginal bleeding, unspecified (principal)
CPT/HCPCS: 36415; 80053; 81003; 84702; 84703; 85025; 87086; 99283-25